=== PATIENT | male | born 1930 | race Caucasian/White ===

== ENCOUNTER 2019-06-11 13:28 | Observation (INO) | payer BC, MEDICAID ==
[~2019-06-11] VITALS: Ht 172.7 cm; Wt 70.9 kg
[2019-06-11 14:16] LABS: BASO # 0.1 x10^3/uL (0.0-0.2); BASO % 1 % (0-3); EOS # 0.1 x10^3/uL (0.0-0.7); EOS % 1 % (0-3); HEMATOCRIT 46.7 % (39.0-53.0); HEMOGLOBIN 15.4 g/dL (13.0-17.5); LYMPH # 2.3 x10^3/uL (1.0-4.8); LYMPH % 25 % (24-48); MEAN CORPUSCULAR HEMOGLOBIN 31 pg (25-35); MEAN CORPUSCULAR HGB CONC 33 g/dL (31-37); MEAN CORPUSCULAR VOLUME 93 fL (79-100); MONO # 0.8 x10^3/uL (0.0-1.1); MONO % 9 % (0-9); NEUT # 5.9 x10^3uL (1.8-7.7); NEUT % 64 % (31-73); PLATELET COUNT 217 x10^3/uL (140-400); RED CELL DISTRIBUTION WIDTH 15.7 % (11.5-14.5); WHITE BLOOD COUNT 9.3 x10^3/uL (4.0-11.0)
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
[2019-06-11 14:27] LABS: ALBUMIN 3.2 g/dL (3.4-5.0); TOTAL PROTEIN 7.3 g/dL (6.4-8.2)
[2019-06-11 14:28] LABS: ALBUMIN/GLOBULIN RATIO 0.8 (1.0-1.7); CALCIUM 9.2 mg/dL (8.5-10.1); CREATININE 2.3 mg/dL (0.7-1.3); GFR 26.9; MAGNESIUM 2.3 mg/dL (1.8-2.4); POTASSIUM 4.2 mmol/L (3.5-5.1); TOTAL BILIRUBIN 0.6 mg/dL (0.2-1.0)
--- NOTE | 2019-06-11 14:45 | EKG ---
[address] [address] Test Date: 2019-06-11 Test Time: 13:52:17 Pat Name: ZULEIKA SAINZ Department: Room: Gender: M [employer] Le[employer] Agent: DAVID : [id number] Requested By: LANNY MOCK Order Number: [id number] Reading MD: Dino Roland MD Measurements Intervals [place] Rate: 60 P: 0 ME: 198 QRS: -121 QRSD: 172 T: 89 QT: 468 QTc: 468 Interpretive Statements A-V PACED Electronically Signed On 06-18-2019 16:32:40 CDT by Dino Roland MD
[2019-06-11] MEDS ORDERED: IV NORMAL SALINE 1,000ML 1,000 ML IV ONE (15:00)
[2019-06-11 15:09] LABS: BILIRUBIN,URINE NEG (NEG); CLARITY,URINE TURBID; COLOR,URINE YELLOW; GLUCOSE,URINE NEG (NEG); NITRITE,URINE NEG (NEG); UROBILINOGEN,URINE 0.2 mg/dL (0.2 mg/dL)
[2019-06-11 15:10] LABS: BACTERIA,URINE MANY /HPF (0-FEW); SQUAMOUS EPITHELIAL CELL,UR OCC /LPF; WBC,URINE >40 /HPF (0-4)
[2019-06-11 15:11] LABS: HYALINE CASTS, URINE OCC /HPF
[2019-06-11] MEDS ORDERED: cefTRIAXone SODIUM 1 GM VIAL ONE (16:11)
[2019-06-11] MEDS ORDERED: IV NORMAL SALINE 50ML 50 ML ONE (16:11)
[2019-06-11 18:49] VITALS: BP 119/69
[2019-06-11] MEDS ORDERED: DIGO125T17 PO (19:57)
[2019-06-11] MEDS ORDERED: MAGN2400 PO (19:57)
[2019-06-11] MEDS ORDERED: GABA-586 PO (19:57)
[2019-06-11] MEDS ORDERED: MEMA10TA PO (19:57)
[2019-06-11] MEDS ORDERED: SENN1TAB62 PO (19:57)
[2019-06-11] MEDS ORDERED: ACET325T9 PO (19:57)
[2019-06-11] MEDS ORDERED: POTA10TA10 PO (19:57)
[2019-06-11] MEDS ORDERED: INSU100V13 SQ (19:57)
[2019-06-11] MEDS ORDERED: TRAZ-120 PO (19:57)
[2019-06-11] MEDS ORDERED: ATOR20TA58 PO (19:57)
[2019-06-11] MEDS ORDERED: TAMS0.4C97 PO (19:57)
[2019-06-11] MEDS ORDERED: NITR0.4T24 SL (19:57)
[2019-06-11] MEDS ORDERED: FURO-69 PO (19:57)
[2019-06-11] MEDS ORDERED: INSU100C SQ (19:57)
[2019-06-11] MEDS ORDERED: AMLO2.5T5 PO (19:57)
--- NOTE | 2019-06-11 20:51 | HP ---
ADMIT DATE: 06/11/2019 ATTENDING PHYSICIAN: Joseph Gaviria MD CHIEF COMPLAINT: [facility]. HISTORY OF PRESENT ILLNESS: The patient is an 88-year-old gentleman who comes from [facility] in [place]. He was scheduled to go to the [facility] Unit. He was screened and evaluated in the ED. He had a urinary tract infection. He is quite demented and obtunded, could not give us much history. He has chronic kidney failure with a creatinine of 2.3 mg percent. He is admitted to the medical service for further treatment and evaluation. He is obtunded by the time I saw him, he could not give any history. No family is here. PAST MEDICAL HISTORY: Significant for chronic kidney disease, stage 3. He has a pacemaker defibrillator. He has had a nephrectomy for supposed cancer. No further details are obtained. He has had essential hypertension and diabetes. He also has profound dementia. ALLERGIES: HE HAS ALLERGIES TO MEPERIDINE, METFORMIN AND NAPROSYN. CURRENT MEDICINES: Include Tylenol, amlodipine, Lipitor, digoxin, Lasix, Neurontin, insulin, magnesium hydroxide, Namenda, nitroglycerin, potassium, senna, Flomax and trazodone. SOCIAL HISTORY: He had been a smoker in the past. There is no history of alcohol use. FAMILY HISTORY: Unobtainable. REVIEW OF SYSTEMS: Unobtainable due to the patient's mental state. PHYSICAL EXAMINATION: GENERAL: When I saw him, this is a sleepy, pleasant, elderly gentleman who is very confused. INITIAL VITAL SIGNS: In the ED showed a blood pressure 140 systolic. His pulse is 65 and regular. He was afebrile. HEENT: Head is without trauma. Pupils are reactive. Sclerae nonicteric. Extraocular muscles intact. Oropharynx is clear. NECK: Supple, no bruits identified. LUNGS: Otherwise clear. CARDIOVASCULAR: Showed regular heart tones. No gallops, no murmurs. Peripheral pulses are palpable and full. ABDOMEN: Soft, protuberant. No organomegaly. Bowel sounds are hypoactive. EXTREMITIES: Showed no cyanosis or edema. NEUROLOGIC: Focally intact. No focal deficit. He is not aware of person, place or time. PERTINENT LABORATORY DATA: His creatinine is 2.3 mg/dL, mainly on the basis he only has one kidney. He has had a previous nephrectomy. The potassium is 4.2 mEq. Liver functions unremarkable. CBC showed a hemoglobin 15.4 g/dL with white count of 9300. Urinalysis shows protein, leukocyte esterase. Cultures are pending. ASSESSMENT: 1. This is an 88-year-old gentleman who has dementia with aggressive behavior. 2. Asymptomatic urinary tract infection. 3. History of atrial fibrillation. 4. Profound dementia with depression. 5. Hypertension. 6. Diabetes. PLAN: 1. Admit overnight for observation to the medical floor. 2. We shall obtain a psychiatric consult if he qualifies for the Senior Behavioral Unit. 3. Continue some home meds. 4. Empiric antibiotics for UTI, pending cultures. JOSEPH GAVIRIA MD DR: VEL/radha JOB#: [id number] / [id number]
[2019-06-12 02:20] VITALS: BP 113/95
[2019-06-12 05:33] VITALS: BP 168/79
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
[2019-06-12 10:48] VITALS: BP 165/75
[2019-06-12 11:30] VITALS: BP 165/75
[2019-06-12] MEDS ORDERED: DIGOXIN 125 MCG TABLET PO SCH (11:30)
[2019-06-12] MEDS ORDERED: MEMANTINE 10 MG TABLET. PO SCH (11:30)
[2019-06-12] MEDS ORDERED: INSULIN LISPRO 300 UNITS/3 ML VIAL. SQ SCH (12:00)
[2019-06-12] MEDS ORDERED: GABAPENTIN 300 MG CAPSULE. PO SCH (14:00)
[2019-06-19] MEDS ORDERED: METH28OI2 TP (05:22)
== END 2019-06-12 13:33 ==
LOC: ER 13:30 → INTOOBSV 17:55 → 1 SOUTH 17:55
PROVIDERS: ADMIT Hospitalist; ATTEND Hospitalist
DX: F03.91 Unspecified dementia, unspecified severity, with behavioral disturbance (principal); N39.0 Urinary tract infection, site not specified; F32.9 Major depressive disorder, single episode, unspecified; N18.3 Chronic kidney disease, stage 3 (moderate); I48.2 Chronic atrial fibrillation; E11.22 Type 2 diabetes mellitus with diabetic chronic kidney disease; I12.9 Hypertensive chronic kidney disease with stage 1 through stage 4 chronic kidney disease, or unspecified chronic kidney disease; Z95.810 Presence of automatic (implantable) cardiac defibrillator; Z87.891 Personal history of nicotine dependence; Z79.4 Long term (current) use of insulin; Z02.9 Encounter for administrative examinations, unspecified; Z90.5 Acquired absence of kidney
CPT/HCPCS: 96365; 99284; G0378; J0696; J1815; 36415; 80053; 81001; 82947; 83540; 83550; 83735; 85025; 87086; 87641; 93005; G0379; J7030

== ENCOUNTER 2019-06-12 13:46 | Inpatient (IN) | payer BC, MEDICAID ==
[~2019-06-12] VITALS: Ht 170.2 cm; Wt 71.8 kg
[~2019-06-12 13:46] MED LIST: ACET325T9 PO; AMLO2.5T5 PO; ATOR20TA58 PO; DIGO125T17 PO; FURO-69 PO; GABA-586 PO; INSU100C SQ; INSU100V13 SQ; MAGN2400 PO; MEMA10TA PO; NITR0.4T SL; POTA10TA10 PO; SENN1TAB62 PO; TAMS0.4C97 PO; TRAZ-120 PO
[2019-06-12 14:15] VITALS: BP 179/85
[2019-06-12] MEDS ORDERED: METHYL SALICYLATE/MENTHOL TOPICAL OINTMENT 29GM TUBE. TP PRN (16:00)
[2019-06-12] MEDS ORDERED: MAG HYDROX/AL HYDROX/SIMETH 30 ML ORAL.SUSP PO PRN (16:00)
[2019-06-12] MEDS ORDERED: MAGNESIUM HYDROXIDE 2,400 MG/30 ML ORAL.SUSP. PO PRN (16:00)
[2019-06-12 16:45] VITALS: BP 123/85
[2019-06-12] MEDS: INSULIN LISPRO 300 UNITS/3 ML VIAL. SQ SCH (17:00)
[2019-06-12 17:28] LABS: DIG 1.1 ng/dL (0.9-2.0)
[2019-06-12] MEDS: SENNOSIDES/DOCUSATE 8.6/50MG TABLET. PO SCH (20:10)
[2019-06-12] MEDS: GABAPENTIN 300 MG CAPSULE. PO SCH (20:10)
[2019-06-12] MEDS: ATORVASTATIN CALCIUM 20 MG TABLET PO SCH (20:10)
[2019-06-12] MEDS: TAMSULOSIN 0.4 MG CAP.ER.24H. PO SCH (20:10)
[2019-06-12] MEDS: MEMANTINE 10 MG TABLET. PO SCH (20:11)
[2019-06-12] MEDS: ACETAMINOPHEN 325 MG TABLET PO PRN (20:28)
[2019-06-12] MEDS: INSULIN GLARGINE SYRINGE. SQ SCH (20:31)
--- NOTE | 2019-06-12 21:56 | PDOC ---
Exam Note: Imer Note: Please also refer to the separate dictated note~for this date of service dictated separately. Discussed the patient with Nursing staff reviewed the chart.~Reviewed interim history and current functioning. Reviewed vital signs,~Labs/ Radiology~and current medications noted below. Continue current treatment with the changes noted in the dictated addendum note Assessment: Vital Signs/I&O: Vital Signs Date Time Temp Pulse Resp B/P (MAP) Pulse Ox O2 Delivery O2 Flow Rate FiO2 06/12/19 16:45 97.2 78 18 123/85 (98) 96 Room Air Labs: Laboratory Tests Test 06/12/19 17:00 06/12/19 17:18 06/12/19 19:04 Magnesium Level 2.1 mg/dL (1.8-2.4) Digoxin Level 1.1 ng/dL (0.9-2.0) Digoxin Last Dose Date 06/11/19 Digoxin Last Dose Time 0900 Glucose (Fingerstick) 176 mg/dL (70-99) H 144 mg/dL (70-99) H Current Medications: Meds: Current Medications Medications (Trade) Dose Ordered Sig/Sonia Route PRN Reason Start Time Stop Time Status Last Admin Dose Admin Olanzapine (ZyPREXA ZYDIS) 2.5 mg PRN Q2HR PRN PO PSYCHOSIS 06/12/19 14:30 06/12/19 16:03 Acetaminophen (Tylenol) 650 mg PRN Q6HRS PRN PO PAIN / TEMP 06/12/19 15:30 06/12/19 20:31 Gabapentin (Neurontin) 300 mg TID PO 06/12/19 21:00 06/12/19 20:11 Memantine (Namenda) 10 mg BID PO 06/12/19 21:00 06/12/19 20:11 Senna/Docusate Sodium (Senna Plus) 1 tab BID PO 06/12/19 21:00 06/12/19 20:11 Tamsulosin HCl (Flomax) 0.4 mg QHS PO 06/12/19 21:00 06/12/19 20:11 Insulin Glargine (Lantus Syringe) 13 unit QHS SQ 06/12/19 21:00 06/12/19 20:31 Insulin Human Lispro (HumaLOG) 8 units TIDWMEALS SQ 8/30/19 17:00 06/12/19 18:32 Atorvastatin Calcium (Lipitor) 20 mg QHS PO 06/12/19 21:00 06/12/19 20:11 I have reviewed the current psychotropics carefully including drug interactions. Risk benefit ratio favors no change other than as noted in my dictated progress note. Diagnosis: Problems: (1) Anxiety disorder (2) Dementia with psychosis (3) Dementia, vascular, with delusions (4) Dementia, vascular, with depression (5) Dementia in Alzheimer's disease with delusions (6) Dementia in Alzheimer's disease with depression (7) Impulse control disorder QUINN DENNISON MD Jun 12, 2019 21:56
[2019-06-13 00:06] LABS: HEMOGLOBIN A1C 8.1 % (4.8-5.6); THYROXINE 5.1 ug/dL (4.5-12.0)
[2019-06-13 05:52] VITALS: BP 168/87
[2019-06-13] MEDS: INSULIN LISPRO 300 UNITS/3 ML VIAL. SQ SCH ×3 (08:25→17:30)
[2019-06-13] MEDS: POTASSIUM CHLORIDE 10 MEQ TABLET.ER. PO SCH (08:26)
[2019-06-13] MEDS: DIGOXIN 125 MCG TABLET PO SCH (08:26)
[2019-06-13] MEDS: SENNOSIDES/DOCUSATE 8.6/50MG TABLET. PO SCH ×2 (08:27→20:06)
[2019-06-13] MEDS: FUROSEMIDE 20 MG TABLET PO SCH (08:27)
[2019-06-13] MEDS: MEMANTINE 10 MG TABLET. PO SCH ×2 (08:27→20:06)
[2019-06-13] MEDS: GABAPENTIN 300 MG CAPSULE. PO SCH ×3 (08:28→20:06)
[2019-06-13 12:05] LABS: THYROID STIM HORMONE (TSH) 2.508 uIU/mL (0.358-3.740)
[2019-06-13 15:52] VITALS: BP 123/69
[2019-06-13] MEDS: ATORVASTATIN CALCIUM 20 MG TABLET PO SCH (20:06)
[2019-06-13] MEDS: TAMSULOSIN 0.4 MG CAP.ER.24H. PO SCH (20:06)
[2019-06-13] MEDS: ACETAMINOPHEN 325 MG TABLET PO PRN (20:08)
[2019-06-13] MEDS: INSULIN GLARGINE SYRINGE. SQ SCH (20:08)
--- NOTE | 2019-06-13 22:52 | PDOC ---
Exam Note: Imer Note: Please also refer to the separate dictated note~for this date of service dictated separately.~Patient seen individually. Discussed the patient with Nursing staff reviewed the chart.~Reviewed interim history and current functioning. Reviewed vital signs,~Labs/ Radiology~and current medications noted below. Continue current treatment with the changes noted in the dictated addendum note Assessment: Vital Signs/I&O: Vital Signs Date Time Temp Pulse Resp B/P (MAP) Pulse Ox O2 Delivery O2 Flow Rate FiO2 06/13/19 15:52 98.5 71 20 123/69 (87) 98 06/12/19 16:45 Room Air I & O 06/12/19 06/12/19 06/13/19 15:00 23:00 07:00 Intake Total 300 ml Balance 300 ml Labs: Laboratory Tests Test 06/13/19 11:50 06/13/19 16:49 06/13/19 19:27 Glucose (Fingerstick) 125 mg/dL (70-99) H 115 mg/dL (70-99) H 164 mg/dL (70-99) H Current Medications: Meds: Current Medications Medications (Trade) Dose Ordered Sig/Sonia Route PRN Reason Start Time Stop Time Status Last Admin Dose Admin Digoxin (Lanoxin) 125 mcg DAILY PO 06/13/19 09:00 06/13/19 08:28 Furosemide (Lasix) 10 mg DAILY PO 06/13/19 09:00 06/13/19 08:28 Potassium Chloride (Klor-Con) 10 meq DAILY PO 06/13/19 09:00 06/13/19 08:28 I have reviewed the current psychotropics carefully including drug interactions. Risk benefit ratio favors no change other than as noted in my dictated progress note. Diagnosis: Problems: (1) Anxiety disorder (2) Dementia with psychosis (3) Dementia, vascular, with delusions (4) Dementia, vascular, with depression (5) Dementia in Alzheimer's disease with delusions (6) Dementia in Alzheimer's disease with depression (7) Impulse control disorder QUINN DENNISON MD Jun 13, 2019 22:52
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
[2019-06-14 06:21] VITALS: BP 134/56
[2019-06-14] MEDS: POTASSIUM CHLORIDE 10 MEQ TABLET.ER. PO SCH (08:33)
[2019-06-14] MEDS: FUROSEMIDE 20 MG TABLET PO SCH (08:34)
[2019-06-14] MEDS: DIGOXIN 125 MCG TABLET PO SCH (08:34)
[2019-06-14] MEDS: GABAPENTIN 300 MG CAPSULE. PO SCH ×3 (08:35→19:59)
[2019-06-14] MEDS: MEMANTINE 10 MG TABLET. PO SCH ×2 (08:35→19:58)
[2019-06-14] MEDS: SENNOSIDES/DOCUSATE 8.6/50MG TABLET. PO SCH ×2 (08:35→19:58)
[2019-06-14] MEDS: INSULIN LISPRO 300 UNITS/3 ML VIAL. SQ SCH ×4 (08:40→17:49)
[2019-06-14] MEDS ORDERED: SERTRALINE 25 MG TABLET. PO SCH (09:00)
--- NOTE | 2019-06-14 14:43 | PN ---
DATE: 06/13/2019 This note covers elements not covered in my initial note of 06/13. SUBJECTIVE: I met with the patient evening of 06/13. The patient slept 6 hours previous night. Per nursing report, he takes his medications whole. He is calm, disorganized, confused, tries to stand up unassisted, is a significant fall risk. We are going to go ahead and repeat UA since one has not in the chart, but previous documentation showed culture was pending. REVIEW OF SYSTEMS: Ambulation impaired, in wheelchair, complains of back pain. No CV, , pulmonary, eye, ENT system symptoms on review. Reliability poor. MENTAL STATUS EXAM: Oriented to himself. Insight, judgment, recent and remote memory, attention, concentration, fund of knowledge poor, consistent with his diagnosis mentioned in my initial note. IMPRESSION: Major neurocognitive disorder, Alzheimer, vascular with delusion, depression, behavioral disturbance; anxiety disorder, unspecified; impulse control disorder, unspecified; probable urinary tract infection. PLAN: Continue Namenda along with Zyprexa p.r.n. Start Zoloft 25 mg a day. Check UA for UTI. Make further adjustments as clinically indicated. We will obtain past psychiatric records. QUINN DENNISON MD DR: SAMIR/radha JOB#: [id number] / [id number]
[2019-06-14 15:52] VITALS: BP 91/63
[2019-06-14] MEDS: ATORVASTATIN CALCIUM 20 MG TABLET PO SCH (19:58)
[2019-06-14] MEDS: TAMSULOSIN 0.4 MG CAP.ER.24H. PO SCH (19:58)
[2019-06-14] MEDS: INSULIN GLARGINE SYRINGE. SQ SCH (19:59)
--- NOTE | 2019-06-14 21:08 | PDOC ---
Exam Note: Imer Note: Please also refer to the separate dictated note~for this date of service dictated separately.~Patient seen individually. Discussed the patient with Nursing staff reviewed the chart.~Reviewed interim history and current functioning. Reviewed vital signs,~Labs/ Radiology~and current medications noted below. Continue current treatment with the changes noted in the dictated addendum note Assessment: Vital Signs/I&O: Vital Signs Date Time Temp Pulse Resp B/P (MAP) Pulse Ox O2 Delivery O2 Flow Rate FiO2 06/14/19 15:52 97.8 65 19 91/63 (72) 96 06/14/19 06:21 Room Air I & O 06/13/19 06/13/19 06/14/19 15:00 23:00 07:00 Intake Total 600 ml 240 ml 240 ml Balance 600 ml 240 ml 240 ml Labs: Laboratory Tests Test 06/14/19 07:24 06/14/19 11:47 06/14/19 17:09 06/14/19 19:17 Glucose (Fingerstick) 128 mg/dL (70-99) H 273 mg/dL (70-99) H 155 mg/dL (70-99) H 197 mg/dL (70-99) H Current Medications: Meds: Current Medications Medications (Trade) Dose Ordered Sig/Sonia Route PRN Reason Start Time Stop Time Status Last Admin Dose Admin Sertraline HCl (Zoloft) 25 mg DAILY PO 06/14/19 09:00 06/14/19 08:35 I have reviewed the current psychotropics carefully including drug interactions. Risk benefit ratio favors no change other than as noted in my dictated progress note. Diagnosis: Problems: (1) Impulse control disorder (2) Dementia in Alzheimer's disease with depression (3) Dementia in Alzheimer's disease with delusions (4) Dementia, vascular, with depression (5) Dementia, vascular, with delusions (6) Dementia with psychosis (7) Anxiety disorder QUINN DENNISON MD Jun 14, 2019 21:08
[2019-06-15 05:52] VITALS: BP 165/80
[2019-06-15] MEDS: POTASSIUM CHLORIDE 10 MEQ TABLET.ER. PO SCH (08:15)
[2019-06-15] MEDS: GABAPENTIN 300 MG CAPSULE. PO SCH ×3 (08:16→20:34)
[2019-06-15] MEDS: SENNOSIDES/DOCUSATE 8.6/50MG TABLET. PO SCH ×2 (08:16→20:34)
[2019-06-15] MEDS: MEMANTINE 10 MG TABLET. PO SCH ×2 (08:16→20:34)
[2019-06-15] MEDS: FUROSEMIDE 20 MG TABLET PO SCH (08:16)
[2019-06-15] MEDS: DIGOXIN 125 MCG TABLET PO SCH (08:16)
[2019-06-15] MEDS: buPROPion XL 150 MG TAB.ER.24H PO SCH (08:19)
[2019-06-15] MEDS: INSULIN LISPRO 300 UNITS/3 ML VIAL. SQ SCH ×2 (08:20→12:19)
[2019-06-15 16:36] VITALS: BP 127/71
--- NOTE | 2019-06-15 19:27 | PDOC ---
Exam Note: Imer Note: Please also refer to the separate dictated note~for this date of service dictated separately.~Patient seen individually. Discussed the patient with Nursing staff reviewed the chart.~Reviewed interim history and current functioning. Reviewed vital signs,~Labs/ Radiology~and current medications noted below. Continue current treatment with the changes noted in the dictated addendum note Assessment: Vital Signs/I&O: Vital Signs Date Time Temp Pulse Resp B/P (MAP) Pulse Ox O2 Delivery O2 Flow Rate FiO2 06/15/19 16:36 97.3 99 16 127/71 (89) 96 06/14/19 06:21 Room Air I & O 06/14/19 06/14/19 06/15/19 15:00 23:00 07:00 Intake Total 560 ml 240 ml 240 ml Balance 560 ml 240 ml 240 ml Labs: Laboratory Tests Test 06/15/19 07:40 06/15/19 11:56 06/15/19 17:16 Glucose (Fingerstick) 133 mg/dL (70-99) H 170 mg/dL (70-99) H 84 mg/dL (70-99) Current Medications: Meds: Current Medications Medications (Trade) Dose Ordered Sig/Sonia Route PRN Reason Start Time Stop Time Status Last Admin Dose Admin Bupropion HCl (Wellbutrin Xl) 150 mg DAILY PO 06/15/19 09:00 06/15/19 08:20 I have reviewed the current psychotropics carefully including drug interactions. Risk benefit ratio favors no change other than as noted in my dictated progress note. Diagnosis: Problems: (1) Impulse control disorder (2) Dementia in Alzheimer's disease with depression (3) Dementia in Alzheimer's disease with delusions (4) Dementia, vascular, with depression (5) Dementia, vascular, with delusions (6) Dementia with psychosis (7) Anxiety disorder QUINN DENNISON MD Jun 15, 2019 19:27
[2019-06-15] MEDS: TAMSULOSIN 0.4 MG CAP.ER.24H. PO SCH (20:34)
[2019-06-15] MEDS: ATORVASTATIN CALCIUM 20 MG TABLET PO SCH (20:34)
[2019-06-15] MEDS: INSULIN GLARGINE SYRINGE. SQ SCH (20:35)
[2019-06-16 05:57] VITALS: BP 131/61
[2019-06-16] MEDS: INSULIN LISPRO 300 UNITS/3 ML VIAL. SQ SCH ×3 (08:00→18:17)
[2019-06-16] MEDS: POTASSIUM CHLORIDE 10 MEQ TABLET.ER. PO SCH (08:05)
[2019-06-16] MEDS: buPROPion XL 150 MG TAB.ER.24H PO SCH (08:06)
[2019-06-16] MEDS: MEMANTINE 10 MG TABLET. PO SCH ×2 (08:06→20:28)
[2019-06-16] MEDS: SENNOSIDES/DOCUSATE 8.6/50MG TABLET. PO SCH ×2 (08:06→20:28)
[2019-06-16] MEDS: FUROSEMIDE 20 MG TABLET PO SCH (08:06)
[2019-06-16] MEDS: GABAPENTIN 300 MG CAPSULE. PO SCH ×3 (08:11→20:28)
[2019-06-16] MEDS: DIGOXIN 125 MCG TABLET PO SCH (08:11)
[2019-06-16] MEDS: ACETAMINOPHEN 325 MG TABLET PO PRN (12:36)
[2019-06-16 15:12] LABS: BASO # 0.1 x10^3/uL (0.0-0.2); BASO % 1 % (0-3); EOS # 0.1 x10^3/uL (0.0-0.7); EOS % 2 % (0-3); LYMPH # 2.1 x10^3/uL (1.0-4.8); LYMPH % 31 % (24-48); MEAN CORPUSCULAR HEMOGLOBIN 31 pg (25-35); MEAN CORPUSCULAR HGB CONC 33 g/dL (31-37); MEAN CORPUSCULAR VOLUME 93 fL (79-100); MONO # 0.6 x10^3/uL (0.0-1.1); MONO % 9 % (0-9); NEUT % 57 % (31-73); PLATELET COUNT 150 x10^3/uL (140-400); RED BLOOD COUNT 4.52 x10^6/uL (4.30-5.70); RED CELL DISTRIBUTION WIDTH 15.6 % (11.5-14.5); WHITE BLOOD COUNT 6.9 x10^3/uL (4.0-11.0)
[2019-06-16 15:22] LABS: ALBUMIN/GLOBULIN RATIO 0.8 (1.0-1.7); CALCIUM 8.9 mg/dL (8.5-10.1); CREATININE 2.4 mg/dL (0.7-1.3); GFR 25.6; POTASSIUM 4.5 mmol/L (3.5-5.1); TOTAL BILIRUBIN 0.4 mg/dL (0.2-1.0); TOTAL PROTEIN 6.7 g/dL (6.4-8.2)
[2019-06-16 16:31] VITALS: BP 127/66
--- NOTE | 2019-06-16 17:09 | PN ---
DATE: 06/14/2019 This late entry 06/14 covers elements not covered in my initial note. SUBJECTIVE: I met with the patient in evening of 06/14. The patient slept 7-3/4 hours previous night. He remains confused, has been somewhat sedated. UA is negative. BUN 36, creatinine 2.3. REVIEW OF SYSTEMS: Ambulation impaired, in wheelchair. No CV, , pulmonary, eye, ENT system symptoms on review. Reliability poor. MENTAL STATUS EXAMINATION: Oriented to himself. Insight, judgment, recent and remote memory, attention, concentration, fund of knowledge poor consistent with his diagnosis mentioned in my initial note. PLAN: The patient has been somewhat withdrawn, apathetic. We will do a pharmacy consult and given his renal failure, there is no contraindication. We will go ahead and change the Zoloft to Wellbutrin-XL 150 mg a day. Maintain Namenda at current dosage. May need to increase this gradually. MAN Marissa DENNISON MD DR: SAMIR/radha JOB#: [id number] / [id number]
--- NOTE | 2019-06-16 18:54 | PDOC ---
Exam Note: Imer Note: Please also refer to the separate dictated note~for this date of service dictated separately.~Patient seen individually. Discussed the patient with Nursing staff reviewed the chart.~Reviewed interim history and current functioning. Reviewed vital signs,~Labs/ Radiology~and current medications noted below. Continue current treatment with the changes noted in the dictated addendum note Assessment: Vital Signs/I&O: Vital Signs Date Time Temp Pulse Resp B/P (MAP) Pulse Ox O2 Delivery O2 Flow Rate FiO2 06/16/19 16:31 97.5 73 16 127/66 (86) 94 06/14/19 06:21 Room Air I & O 06/15/19 06/15/19 06/16/19 14:59 22:59 06:59 Intake Total 660 ml 480 ml 240 ml Balance 660 ml 480 ml 240 ml Labs: Laboratory Tests Test 06/15/19 19:49 06/16/19 07:27 06/16/19 11:47 06/16/19 15:04 Glucose (Fingerstick) 126 mg/dL (70-99) H 72 mg/dL (70-99) 106 mg/dL (70-99) H White Blood Count 6.9 x10^3/uL (4.0-11.0) Red Blood Count 4.52 x10^6/uL (4.30-5.70) Hemoglobin 14.0 g/dL (13.0-17.5) Hematocrit 42.0 % (39.0-53.0) Mean Corpuscular Volume 93 fL (79-100) Mean Corpuscular Hemoglobin 31 pg (25-35) Mean Corpuscular Hemoglobin Concent 33 g/dL (31-37) Red Cell Distribution Width 15.6 % (11.5-14.5) H Platelet Count 150 x10^3/uL (140-400) Neutrophils (%) (Auto) 57 % (31-73) Lymphocytes (%) (Auto) 31 % (24-48) Monocytes (%) (Auto) 9 % (0-9) Eosinophils (%) (Auto) 2 % (0-3) Basophils (%) (Auto) 1 % (0-3) Neutrophils # (Auto) 4.0 x10^3uL (1.8-7.7) Lymphocytes # (Auto) 2.1 x10^3/uL (1.0-4.8) Monocytes # (Auto) 0.6 x10^3/uL (0.0-1.1) Eosinophils # (Auto) 0.1 x10^3/uL (0.0-0.7) Basophils # (Auto) 0.1 x10^3/uL (0.0-0.2) Sodium Level 141 mmol/L (136-145) Potassium Level 4.5 mmol/L (3.5-5.1) Chloride Level 106 mmol/L (98-107) Carbon Dioxide Level 27 mmol/L (21-32) Anion Gap 8 (6-14) Blood Urea Nitrogen 45 mg/dL (8-26) H Creatinine 2.4 mg/dL (0.7-1.3) H Estimated GFR (Cockcroft-Gault) 25.6 BUN/Creatinine Ratio 19 (6-20) Glucose Level 223 mg/dL (70-99) H Calcium Level 8.9 mg/dL (8.5-10.1) Total Bilirubin 0.4 mg/dL (0.2-1.0) Aspartate Amino Transferase (AST) 35 U/L (15-37) Alanine Aminotransferase (ALT) 33 U/L (16-63) Alkaline Phosphatase 118 U/L (46-116) H Total Protein 6.7 g/dL (6.4-8.2) Albumin 3.0 g/dL (3.4-5.0) L Albumin/Globulin Ratio 0.8 (1.0-1.7) L Test 06/16/19 17:08 Glucose (Fingerstick) 173 mg/dL (70-99) H Current Medications: I have reviewed the current psychotropics carefully including drug interactions. Risk benefit ratio favors no change other than as noted in my dictated progress note. 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
[2019-06-16] MEDS: ATORVASTATIN CALCIUM 20 MG TABLET PO SCH (20:28)
[2019-06-16] MEDS: TAMSULOSIN 0.4 MG CAP.ER.24H. PO SCH (20:28)
[2019-06-16] MEDS: INSULIN GLARGINE SYRINGE. SQ SCH (20:29)
--- NOTE | 2019-06-17 01:38 | PN ---
DATE: 06/15/2019 PSYCHIATRIC PROGRESS NOTE This late entry 06/15/2019 covers the elements not covered in my initial note, 06/15/2019. SUBJECTIVE: I met with the patient in the evening of 06/15/2019. The patient slept 9-3/4 hours previous night. He remains confused, withdrawn. Pharmacy consult found no contraindication to using Wellbutrin and left me a note that if the patient is unable to tolerate the 150 mg daily, we could lower the dosage. REVIEW OF SYSTEMS: Ambulation impaired, in wheelchair. No CV, , pulmonary, eye, ENT system symptoms on review. Reliability poor. MENTAL STATUS EXAM: Oriented to himself. Insight, judgment, recent and remote memory, attention, concentration, fund of knowledge poor, consistent with his diagnosis. He has been less drowsy during the day on 06/15/2019. LABORATORY DATA: Reviewed. IMPRESSION: Unchanged from initial note. PLAN: Continue Wellbutrin-XL 150 mg a day, Namenda is 10 mg daily. We will increase it gradually. QUINN DENNISON MD DR: SAMIR/radha JOB#: [id number] / [id number]
[2019-06-17 05:54] VITALS: BP 127/58
[2019-06-17 06:03] VITALS: BP 130/73
[2019-06-17] MEDS: DIGOXIN 125 MCG TABLET PO SCH (08:16)
[2019-06-17] MEDS: POTASSIUM CHLORIDE 10 MEQ TABLET.ER. PO SCH (08:16)
[2019-06-17] MEDS: GABAPENTIN 300 MG CAPSULE. PO SCH ×3 (08:17→20:12)
[2019-06-17] MEDS: buPROPion XL 150 MG TAB.ER.24H PO SCH (08:17)
[2019-06-17] MEDS: SENNOSIDES/DOCUSATE 8.6/50MG TABLET. PO SCH ×2 (08:17→20:12)
[2019-06-17] MEDS: FUROSEMIDE 20 MG TABLET PO SCH (08:17)
[2019-06-17] MEDS: MEMANTINE 10 MG TABLET. PO SCH ×2 (08:17→20:12)
[2019-06-17] MEDS: INSULIN LISPRO 300 UNITS/3 ML VIAL. SQ SCH ×3 (08:51→17:33)
--- NOTE | 2019-06-17 09:23 | HP ---
ADMIT DATE: 06/12/2019 ATTENDING PHYSICIAN: Joseph Gaviria MD CHIEF COMPLAINT: Aggressive behavior at the assisted. HISTORY OF PRESENT ILLNESS: The patient is an 88-year-old gentleman who comes from [facility] in [place]. He was scheduled to go to the [facility]. He was screened and evaluated in the ED. He had a urinary tract infection. He is quite demented and obtunded, could not give us much history. He has chronic kidney failure with a creatinine of 2.3 mg percent. He is admitted to the medical service for further treatment and evaluation. He is obtunded by the time I saw him, he could not give any history. No family is here. PAST MEDICAL HISTORY: Significant for chronic kidney disease, stage 3. He has a pacemaker defibrillator. He has had a nephrectomy for supposed cancer. No further details are obtained. He has had essential hypertension and diabetes. He also has profound dementia. ALLERGIES: HE HAS ALLERGIES TO MEPERIDINE, METFORMIN AND NAPROSYN. CURRENT MEDICINES: Include Tylenol, amlodipine, Lipitor, digoxin, Lasix, Neurontin, insulin, magnesium hydroxide, Namenda, nitroglycerin, potassium, senna, Flomax and trazodone. SOCIAL HISTORY: He had been a smoker in the past. There is no history of alcohol use. FAMILY HISTORY: Unobtainable. REVIEW OF SYSTEMS: Unobtainable due to the patient's mental state. PHYSICAL EXAMINATION: GENERAL: When I saw him, this is a sleepy, pleasant, elderly gentleman who is very confused. INITIAL VITAL SIGNS: In the ED showed a blood pressure 140 systolic. His pulse is 65 and regular. He was afebrile. HEENT: Head is without trauma. Pupils are reactive. Sclerae nonicteric. Extraocular muscles intact. Oropharynx is clear. NECK: Supple, no bruits identified. LUNGS: Otherwise clear. CARDIOVASCULAR: Showed regular heart tones. No gallops, no murmurs. Peripheral pulses are palpable and full. ABDOMEN: Soft, protuberant. No organomegaly. Bowel sounds are hypoactive. EXTREMITIES: Showed no cyanosis or edema. NEUROLOGIC: Focally intact. No focal deficit. He is not aware of person, place or time. PERTINENT LABORATORY DATA: His creatinine is 2.3 mg/dL, mainly on the basis he only has one kidney. He has had a previous nephrectomy. The potassium is 4.2 mEq. Liver functions unremarkable. CBC showed a hemoglobin 15.4 g/dL with white count of 9300. Urinalysis shows protein, leukocyte esterase. Cultures are pending. ASSESSMENT: 1. This is an 88-year-old gentleman who has dementia with aggressive behavior. 2. Asymptomatic urinary tract infection. 3. History of atrial fibrillation. 4. Profound dementia with depression. 5. Hypertension. 6. Diabetes. PLAN: 1. Admit overnight for observation to the medical floor. 2. We shall obtain a psychiatric consult if he qualifies for the [facility]. 3. Continue some home meds. 4. Empiric antibiotics for UTI, pending cultures. JOSEPH GAVIRIA MD DR: VEL/nts JOB#: [id number] / [id number]
[2019-06-17 12:00] VITALS: BP 98/52
[2019-06-17 16:35] VITALS: BP 134/74
[2019-06-17] MEDS: ATORVASTATIN CALCIUM 20 MG TABLET PO SCH (20:12)
[2019-06-17] MEDS: TAMSULOSIN 0.4 MG CAP.ER.24H. PO SCH (20:12)
[2019-06-17] MEDS: INSULIN GLARGINE SYRINGE. SQ SCH (21:18)
--- NOTE | 2019-06-17 21:59 | PDOC ---
Exam Note: Imer Note: Please also refer to the separate dictated note~for this date of service dictated separately.~Patient seen individually. Discussed the patient with Nursing staff reviewed the chart.~Reviewed interim history and current functioning. Reviewed vital signs,~Labs/ Radiology~and current medications noted below. Continue current treatment with the changes noted in the dictated addendum note Assessment: Vital Signs/I&O: Vital Signs Date Time Temp Pulse Resp B/P (MAP) Pulse Ox O2 Delivery O2 Flow Rate FiO2 06/17/19 16:35 98.0 83 16 134/74 (94) 95 06/14/19 06:21 Room Air I & O 06/16/19 06/16/19 06/17/19 15:00 23:00 07:00 Intake Total 480 ml 300 ml 120 ml Balance 480 ml 300 ml 120 ml Labs: Laboratory Tests Test 06/17/19 08:30 06/17/19 11:44 06/17/19 17:11 06/17/19 19:32 Glucose (Fingerstick) 110 mg/dL (70-99) H 121 mg/dL (70-99) H 107 mg/dL (70-99) H 139 mg/dL (70-99) H Current Medications: I have reviewed the current psychotropics carefully including drug interactions. Risk benefit ratio favors no change other than as noted in my dictated progress note. Diagnosis: Problems: (1) Anxiety disorder (2) Dementia with psychosis (3) Dementia, vascular, with delusions (4) Dementia, vascular, with depression (5) Dementia in Alzheimer's disease with delusions (6) Dementia in Alzheimer's disease with depression (7) Impulse control disorder QUINN DENNISON MD Jun 17, 2019 21:59
--- NOTE | 2019-06-18 05:01 | PN ---
DATE: 06/16/2019 PSYCHIATRIC PROGRESS NOTE This late entry of 06/16/2019 covers elements not covered in my initial note. SUBJECTIVE: I met with the patient in evening of 06/16/2019. The patient slept 7-3/4 hours previous night. He has been less tired, still confused. REVIEW OF SYSTEMS: Ambulation impaired, in wheelchair. No CV, , pulmonary, eye, ENT system symptoms on review. Reliability poor. MENTAL STATUS EXAM: Oriented to himself. Insight, judgment, recent and remote memory, attention, concentration, fund of knowledge poor, consistent with his diagnosis mentioned in my initial note. PLAN: No change from initial note, but increase the Namenda to 10 mg twice a day. Continue Wellbutrin-XL 150 mg a day, Zyprexa p.r.n. Rest of the psychotropics unchanged. MAN Marissa DENNISON MD DR: SAMIR/radha JOB#: [id number] / [id number]
[2019-06-18 06:43] VITALS: BP 173/77
[2019-06-18] MEDS: INSULIN LISPRO 300 UNITS/3 ML VIAL. SQ SCH ×3 (08:11→17:00)
[2019-06-18] MEDS: buPROPion XL 150 MG TAB.ER.24H PO SCH (08:13)
[2019-06-18] MEDS: GABAPENTIN 300 MG CAPSULE. PO SCH ×3 (08:14→20:38)
[2019-06-18] MEDS: SENNOSIDES/DOCUSATE 8.6/50MG TABLET. PO SCH ×2 (08:14→20:36)
[2019-06-18] MEDS: MEMANTINE 10 MG TABLET. PO SCH ×2 (08:14→20:36)
[2019-06-18] MEDS: DIGOXIN 125 MCG TABLET PO SCH (08:14)
[2019-06-18 16:04] VITALS: BP 132/78
[2019-06-18] MEDS: TAMSULOSIN 0.4 MG CAP.ER.24H. PO SCH (20:36)
[2019-06-18] MEDS: ATORVASTATIN CALCIUM 20 MG TABLET PO SCH (20:36)
[2019-06-18] MEDS: QUEtiapine 25 MG TABLET. PO SCH (20:38)
[2019-06-18] MEDS: INSULIN GLARGINE SYRINGE. SQ SCH (21:07)
--- NOTE | 2019-06-18 21:15 | PDOC ---
Exam Note: Imer Note: Please also refer to the separate dictated note~for this date of service dictated separately.~Patient seen individually. Discussed the patient with Nursing staff reviewed the chart.~Reviewed interim history and current functioning. Reviewed vital signs,~Labs/ Radiology~and current medications noted below. Continue current treatment with the changes noted in the dictated addendum note Assessment: Vital Signs/I&O: Vital Signs Date Time Temp Pulse Resp B/P (MAP) Pulse Ox O2 Delivery O2 Flow Rate FiO2 06/18/19 16:04 97.2 70 16 132/78 (96) 96 06/14/19 06:21 Room Air I & O 06/17/19 06/17/19 06/18/19 14:59 22:59 06:59 Intake Total 720 ml 240 ml 240 ml Balance 720 ml 240 ml 240 ml Labs: Laboratory Tests Test 06/18/19 07:56 06/18/19 11:57 06/18/19 16:39 06/18/19 19:18 Glucose (Fingerstick) 77 mg/dL (70-99) 198 mg/dL (70-99) H 93 mg/dL (70-99) 164 mg/dL (70-99) H Current Medications: Meds: Current Medications Medications (Trade) Dose Ordered Sig/Sonia Route PRN Reason Start Time Stop Time Status Last Admin Dose Admin Quetiapine Fumarate (SEROquel) 25 mg QHS PO 06/18/19 21:00 06/18/19 20:38 I have reviewed the current psychotropics carefully including drug interactions. Risk benefit ratio favors no change other than as noted in my dictated progress note. 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
[2019-06-19] MEDS ORDERED: MAG355OR11 PO (05:15)
[2019-06-19] MEDS ORDERED: MAGN2400 PO (05:21)
[2019-06-19] MEDS ORDERED: METH29OI TP (05:22)
[2019-06-19] MEDS ORDERED: OLAN2.5T3 PO (05:25)
[2019-06-19] MEDS ORDERED: BUPR-192 PO (05:28)
[2019-06-19 06:38] VITALS: BP 177/81
[2019-06-19] MEDS: INSULIN LISPRO 300 UNITS/3 ML VIAL. SQ SCH ×3 (08:00→17:00)
[2019-06-19] MEDS: MEMANTINE 10 MG TABLET. PO SCH ×2 (08:22→21:02)
[2019-06-19] MEDS: SENNOSIDES/DOCUSATE 8.6/50MG TABLET. PO SCH ×2 (08:22→21:02)
[2019-06-19] MEDS: DIGOXIN 125 MCG TABLET PO SCH (08:22)
[2019-06-19] MEDS: buPROPion XL 150 MG TAB.ER.24H PO SCH (08:22)
[2019-06-19] MEDS: GABAPENTIN 300 MG CAPSULE. PO SCH ×3 (08:29→21:02)
[2019-06-19 15:58] VITALS: BP 115/85
[2019-06-19] MEDS: TAMSULOSIN 0.4 MG CAP.ER.24H. PO SCH (21:02)
[2019-06-19] MEDS: ATORVASTATIN CALCIUM 20 MG TABLET PO SCH (21:02)
[2019-06-19] MEDS: QUEtiapine 25 MG TABLET. PO SCH (21:02)
[2019-06-19] MEDS: INSULIN GLARGINE SYRINGE. SQ SCH (21:04)
--- NOTE | 2019-06-19 22:08 | PDOC ---
Exam Note: Imer Note: Please also refer to the separate dictated note~for this date of service dictated separately.~Patient seen individually. Discussed the patient with Nursing staff reviewed the chart.~Reviewed interim history and current functioning. Reviewed vital signs,~Labs/ Radiology~and current medications noted below. Continue current treatment with the changes noted in the dictated addendum note Assessment: Vital Signs/I&O: Vital Signs Date Time Temp Pulse Resp B/P (MAP) Pulse Ox O2 Delivery O2 Flow Rate FiO2 06/19/19 15:58 97.4 86 18 115/85 (95) 97 06/19/19 06:38 Room Air I & O 06/18/19 06/18/19 06/19/19 14:59 22:59 06:59 Intake Total 720 ml 240 ml 120 ml Balance 720 ml 240 ml 120 ml Labs: Laboratory Tests Test 06/19/19 07:15 06/19/19 11:16 06/19/19 16:17 06/19/19 19:04 Glucose (Fingerstick) 130 mg/dL (70-99) H 226 mg/dL (70-99) H 114 mg/dL (70-99) H 127 mg/dL (70-99) H Current Medications: I have reviewed the current psychotropics carefully including drug interactions. Risk benefit ratio favors no change other than as noted in my dictated progress note. Diagnosis: Problems: (1) Anxiety disorder (2) Dementia with psychosis (3) Dementia, vascular, with delusions (4) Dementia, vascular, with depression (5) Dementia in Alzheimer's disease with delusions (6) Dementia in Alzheimer's disease with depression (7) Impulse control disorder QUINN DENNISON MD Jun 19, 2019 22:08
--- NOTE | 2019-06-20 03:20 | PN ---
DATE: 06/18/2019 PSYCHIATRIC PROGRESS NOTE This late entry of 06/17 covers elements not covered in my initial note of 06/17. SUBJECTIVE: I met with the patient in the evening of 06/17 and staff. The patient is at a treatment team meeting with the entire team on the morning of 06/17 and the patient's , Virginia, attended the conference. She had many questions about the patient's diagnosis, treatment, medications, specifically with respect to his nephrectomy and any side effects potentially from his medications. We discussed this at great length. He is sleeping average 8 hours. No pain. Appetite is 50%. REVIEW OF SYSTEMS: Ambulation impaired, in wheelchair. No CV, , pulmonary, eye, ENT system symptoms on review. Reliability poor. MENTAL STATUS EXAMINATION: Oriented to himself. Insight, judgment, recent and remote memory, attention, concentration, fund of knowledge poor, consistent with his diagnosis mentioned in my initial note. PLAN: No change from initial note. We will start Seroquel 25 mg p.o. at bedtime for some of his restlessness and if he is over sedated, we may need to reduce this. Continue Wellbutrin-XL 150 mg a day, Namenda 10 mg b.i.d., and Zyprexa p.r.n. QUINN DENNISON MD DR: SAMIR/radha JOB#: [id number] / [id number]
[2019-06-20 05:53] VITALS: BP 166/88
[2019-06-20 07:23] LABS: ALBUMIN 2.9 g/dL (3.4-5.0); ALBUMIN/GLOBULIN RATIO 0.8 (1.0-1.7); BASO # 0.1 x10^3/uL (0.0-0.2); BASO % 1 % (0-3); CREATININE 1.9 mg/dL (0.7-1.3); EOS # 0.2 x10^3/uL (0.0-0.7); EOS % 3 % (0-3); GFR 33.5; HEMATOCRIT 42.1 % (39.0-53.0); HEMOGLOBIN 13.8 g/dL (13.0-17.5); LYMPH # 2.6 x10^3/uL (1.0-4.8); LYMPH % 40 % (24-48); MEAN CORPUSCULAR HEMOGLOBIN 32 pg (25-35); MEAN CORPUSCULAR HGB CONC 33 g/dL (31-37); MEAN CORPUSCULAR VOLUME 96 fL (79-100); MONO # 0.7 x10^3/uL (0.0-1.1); MONO % 12 % (0-9); NEUT # 2.8 x10^3uL (1.8-7.7); NEUT % 44 % (31-73); PLATELET COUNT 125 x10^3/uL (140-400); POTASSIUM 4.1 mmol/L (3.5-5.1); RED BLOOD COUNT 4.38 x10^6/uL (4.30-5.70); RED CELL DISTRIBUTION WIDTH 16.2 % (11.5-14.5); TOTAL BILIRUBIN 0.6 mg/dL (0.2-1.0); TOTAL PROTEIN 6.4 g/dL (6.4-8.2); WHITE BLOOD COUNT 6.4 x10^3/uL (4.0-11.0)
[2019-06-20] MEDS: DIGOXIN 125 MCG TABLET PO SCH (07:56)
[2019-06-20] MEDS: MEMANTINE 10 MG TABLET. PO SCH (07:56)
[2019-06-20] MEDS: INSULIN LISPRO 300 UNITS/3 ML VIAL. SQ SCH ×3 (07:56→17:00)
[2019-06-20] MEDS: buPROPion XL 150 MG TAB.ER.24H PO SCH (07:56)
[2019-06-20] MEDS: SENNOSIDES/DOCUSATE 8.6/50MG TABLET. PO SCH (07:56)
[2019-06-20] MEDS: GABAPENTIN 300 MG CAPSULE. PO SCH ×2 (07:57→14:00)
--- NOTE | 2019-06-20 09:33 | PN ---
DATE: 06/17/2019 PSYCHIATRIC PROGRESS NOTE This late entry 06/17/2019 covers elements not covered in my initial note. SUBJECTIVE: I met with the patient evening of 06/17/2019. The patient slept 6-1/2 hours previous night. His BUN is elevated. He just has one kidney. I will defer to Dr. Waller for medical management. He is compliant with his medications. He sat himself on the floor, did not have a fall, does have a small skin tear. REVIEW OF SYSTEMS: Ambulation impaired, in wheelchair. No CV, , pulmonary, eye, ENT system symptoms on review. Reliability poor. MENTAL STATUS EXAM: Oriented to himself. Insight, judgment, recent and remote memory, attention, concentration, fund of knowledge poor, consistent with his diagnosis mentioned in my initial note. PLAN: No change from initial note for now. We started him on Wellbutrin-XL after a pharmacy consult found no contraindication for Wellbutrin given his nephrectomy. JA Felton did talk to the pharmacist to clarify this and we will share this with the at treatment team meeting on 06/18/2019. IMPRESSION: Unchanged from initial note. PLAN: No change from initial note. QUINN DENNISON MD DR: SAMIR/radha JOB#: [id number] / [id number]
[2019-06-20 16:06] VITALS: BP 138/83
--- NOTE | 2019-06-20 17:22 | RAD ---
Exam: CT head INDICATION: Left-sided neglect TECHNIQUE: Sequential axial images through the head were obtained without the administration of IV contrast. Comparisons: None FINDINGS: Bilateral subdural hematomas which are acute on chronic in the frontal regions. There is no sulcal effacement or midline shift. The subdural hematoma on the right measures 8 mm and the subdural hematoma on the left measures 7 mm. There is no midline shift or sulcal effacement. Vague area of hypodensity within the right occipital lobe which may represent vasogenic edema. The ventricular system is within normal limits without compression hydrocephalus. The basal cisterns are well maintained. The visualized portions of the paranasal sinuses and mastoid air cells are well-pneumatized. Mildly displaced fracture of the calvarium at the right occipital region IMPRESSION: 1. Evaluation is mildly degraded by motion. 2. Bilateral small subdural hematomas which are acute on chronic. No midline shift or hydrocephalus. 3. Vague area of hypodensity within the right occipital lobe which may represent vasogenic edema versus subacute infarction. Correlation with MRI is recommended. 4. Mildly displaced fracture of the calvarium in the right occipital region Exposure: One or more of the following in the visualized dose reduction techniques were utilized for this examination: 1. Automated exposure control 2. Adjustment of the MA and/or KV according to patient size Use of iterative of reconstructive technique FOR INTERNAL CODING PURPOSES Critical result: Findings discussed with Yessica Muhammad RN at 06/20/2019 5:16 PM. RESULT CODE: (C) Electronically signed by: Rosi Cruz MD (06/20/2019 5:19 PM) [id number]
[2019-06-20] MEDS ORDERED: QUET25TA5 PO (19:56)
--- NOTE | 2019-06-20 22:49 | PDOC ---
Exam Note: Imer Note: Please also refer to the separate dictated note~for this date of service dictated separately.~Patient seen individually. Discussed the patient with Nursing staff reviewed the chart.~Reviewed interim history and current functioning. Reviewed vital signs,~Labs/ Radiology~and current medications noted below. Continue current treatment with the changes noted in the dictated addendum note Assessment: Vital Signs/I&O: Vital Signs Date Time Temp Pulse Resp B/P (MAP) Pulse Ox O2 Delivery O2 Flow Rate FiO2 06/20/19 16:06 97.8 94 20 138/83 (101) 96 06/20/19 05:53 Room Air I & O 06/19/19 06/19/19 06/20/19 15:00 23:00 07:00 Intake Total 720 ml 360 ml Balance 720 ml 360 ml Labs: Laboratory Tests Test 06/20/19 06:42 06/20/19 07:15 06/20/19 11:48 06/20/19 16:25 White Blood Count 6.4 x10^3/uL (4.0-11.0) Red Blood Count 4.38 x10^6/uL (4.30-5.70) Hemoglobin 13.8 g/dL (13.0-17.5) Hematocrit 42.1 % (39.0-53.0) Mean Corpuscular Volume 96 fL (79-100) Mean Corpuscular Hemoglobin 32 pg (25-35) Mean Corpuscular Hemoglobin Concent 33 g/dL (31-37) Red Cell Distribution Width 16.2 % (11.5-14.5) H Platelet Count 125 x10^3/uL (140-400) L Neutrophils (%) (Auto) 44 % (31-73) Lymphocytes (%) (Auto) 40 % (24-48) Monocytes (%) (Auto) 12 % (0-9) H Eosinophils (%) (Auto) 3 % (0-3) Basophils (%) (Auto) 1 % (0-3) Neutrophils # (Auto) 2.8 x10^3uL (1.8-7.7) Lymphocytes # (Auto) 2.6 x10^3/uL (1.0-4.8) Monocytes # (Auto) 0.7 x10^3/uL (0.0-1.1) Eosinophils # (Auto) 0.2 x10^3/uL (0.0-0.7) Basophils # (Auto) 0.1 x10^3/uL (0.0-0.2) Sodium Level 146 mmol/L (136-145) H Potassium Level 4.1 mmol/L (3.5-5.1) Chloride Level 111 mmol/L (98-107) H Carbon Dioxide Level 30 mmol/L (21-32) Anion Gap 5 (6-14) L Blood Urea Nitrogen 36 mg/dL (8-26) H Creatinine 1.9 mg/dL (0.7-1.3) H Estimated GFR (Cockcroft-Gault) 33.5 BUN/Creatinine Ratio 19 (6-20) Glucose Level 119 mg/dL (70-99) H Calcium Level 9.0 mg/dL (8.5-10.1) Total Bilirubin 0.6 mg/dL (0.2-1.0) Aspartate Amino Transferase (AST) 35 U/L (15-37) Alanine Aminotransferase (ALT) 30 U/L (16-63) Alkaline Phosphatase 110 U/L (46-116) Total Protein 6.4 g/dL (6.4-8.2) Albumin 2.9 g/dL (3.4-5.0) L Albumin/Globulin Ratio 0.8 (1.0-1.7) L Glucose (Fingerstick) 94 mg/dL (70-99) 307 mg/dL (70-99) H 190 mg/dL (70-99) H Test 06/20/19 19:15 Glucose (Fingerstick) 120 mg/dL (70-99) H Current Medications: I have reviewed the current psychotropics carefully including drug interactions. Risk benefit ratio favors no change other than as noted in my dictated progress note. Diagnosis: Problems: (1) Anxiety disorder (2) Dementia with psychosis (3) Dementia, vascular, with delusions (4) Dementia, vascular, with depression (5) Dementia in Alzheimer's disease with delusions (6) Dementia in Alzheimer's disease with depression (7) Impulse control disorder QUINN DENNISON MD Jun 20, 2019 22:48
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
--- NOTE | 2019-06-21 23:40 | PN ---
DATE: 06/19/2019 PSYCHIATRIC PROGRESS NOTE This late entry 06/19/2019 covers elements not covered in my initial note. SUBJECTIVE: I met with the patient evening of 06/19/2019. The patient slept 7 hours previous night. He was anxious, restless, in the morning received Zyprexa, incontinent of the bowel, confused. He was blaming staff for being incontinent, pouring liquid on the floor. REVIEW OF SYSTEMS: Ambulation impaired, in wheelchair. No CV, , pulmonary, eye system symptoms on review. Reliability poor. MENTAL STATUS EXAM: Oriented to himself. Insight, judgment, recent and remote memory, attention, concentration, fund of knowledge poor, consistent with his diagnosis mentioned in my initial note. PLAN: No change from initial note. MAN Marissa DENNISON MD DR: SAMIR/radha JOB#: [id number] / [id number]
== END 2019-06-20 21:30 | disposition short-term general hospital (02) | DRG 57 ==
LOC: GEROPSY 13:46
PROVIDERS: ADMIT Psychiatry & Neurology Psychiatry; ATTEND Psychiatry & Neurology Psychiatry
DX: G30.9 Alzheimer's disease, unspecified (principal); N39.0 Urinary tract infection, site not specified; F01.51 Vascular dementia, unspecified severity, with behavioral disturbance; F02.81 Dementia in other diseases classified elsewhere, unspecified severity, with behavioral disturbance; I13.0 Hypertensive heart and chronic kidney disease with heart failure and stage 1 through stage 4 chronic kidney disease, or unspecified chronic kidney disease; F63.9 Impulse disorder, unspecified; F41.9 Anxiety disorder, unspecified; F32.9 Major depressive disorder, single episode, unspecified; E11.22 Type 2 diabetes mellitus with diabetic chronic kidney disease; E11.40 Type 2 diabetes mellitus with diabetic neuropathy, unspecified; I48.91 Unspecified atrial fibrillation; I50.9 Heart failure, unspecified; N18.3 Chronic kidney disease, stage 3 (moderate); M19.90 Unspecified osteoarthritis, unspecified site; I25.10 Atherosclerotic heart disease of native coronary artery without angina pectoris; Z66 Do not resuscitate; Z79.899 Other long term (current) drug therapy; Z85.46 Personal history of malignant neoplasm of prostate; Z85.528 Personal history of other malignant neoplasm of kidney; Z87.891 Personal history of nicotine dependence; Z90.5 Acquired absence of kidney; Z91.81 History of falling; Z95.0 Presence of cardiac pacemaker; Z88.8 Allergy status to other drugs, medicaments and biological substances; Z91.14 Patient's other noncompliance with medication regimen
CPT/HCPCS: 36415; 70450; 80053; 80061; 80162; 81001; 82306; 82947; 83036; 83540; 83550; 83735; 84436; 84443; 84480; 85025; 86592; 87086; 87641; 93005; J1815; 97110; 97116; 97530

== ENCOUNTER 2019-06-23 16:45 | Inpatient (IN) | payer BC, MEDICAID ==
[~2019-06-23] VITALS: Ht 163.8 cm; Wt 73.3 kg
[~2019-06-23 16:45] MED LIST changes: +BUPR-192 PO; +MAG355OR11 PO; +METH29OI TP; +OLAN2.5T3 PO; +QUET25TA5 PO
--- NOTE | 2019-06-23 18:10 | NUR ---
Admission Note with Justification for Admission to [facility] Patient admitted to [facility] for protective oversight for emergency stabilization of acute psychiatric crisis. Pt admitted from: Hospital Mode of arrival: POV Accompanied By: Secure Transport Precipitating behaviors that initiated intake and admission: Patient is still having combative behaviors with cares, resistive with cares, increased confusion. Description of failure of out patient attempts at stabilization in previous setting list behavior and medication trials: Behaviors and assessment findings upon admission: combative with nurses at hospital, increased confusion. Plan: Admit for protective oversight for adjustment and stabilization of medications, behaviors and mood. Intense treatment regimen including groups, medication adjustments, therapy, consistent regimen for ADL's, self care, and sleep hygiene. Daily monitoring by Inpatient staff, Psychiatry, and Medical Physician.
[2019-06-23] MEDS ORDERED: HYDR-2868 PO (18:29)
[2019-06-23] MEDS ORDERED: AMLO10TA4 PO (18:29)
[2019-06-23] MEDS ORDERED: METHYL SALICYLATE/MENTHOL TOPICAL OINTMENT 29GM TUBE. TP PRN (18:30)
[2019-06-23] MEDS ORDERED: ACETAMINOPHEN 325 MG TABLET PO PRN (18:30)
[2019-06-23] MEDS ORDERED: MAG HYDROX/AL HYDROX/SIMETH 30 ML ORAL.SUSP PO PRN (19:00)
[2019-06-23] MEDS: ATORVASTATIN CALCIUM 20 MG TABLET PO SCH (19:39)
[2019-06-23] MEDS: MEMANTINE 10 MG TABLET. PO SCH (19:39)
[2019-06-23] MEDS: GABAPENTIN 300 MG CAPSULE. PO SCH (19:39)
[2019-06-23] MEDS: hydrALAZINE 25 MG TABLET PO SCH (19:39)
[2019-06-23] MEDS ORDERED: MAGNESIUM HYDROXIDE 2,400 MG/30 ML ORAL.SUSP. PO PRN (19:45)
[2019-06-23] MEDS: INSULIN GLARGINE SYRINGE. SQ SCH (20:21)
[2019-06-23] MEDS ORDERED: QUEtiapine 25 MG TABLET. PO SCH (21:00)
[2019-06-23] MEDS ORDERED: MAGNESIUM HYDROXIDE 2,400 MG/30 ML ORAL.SUSP. PO SCH (21:00)
--- NOTE | 2019-06-23 21:37 | NUR ---
Nursing note: Assumed care of pt in his room. He was pleasantly confused but cooperative and compliant with meds in applesauce. He is alert to self only. Pt c/o pain in his back and he was lying off the pillow and against the rail of the bed. I repositioned him on his pillow and he said he felt better. He also had pain med in his HS med. No hallucinations or delusions present.
--- NOTE | 2019-06-23 21:53 | PDOC ---
Exam Note: Imer Note: Please also refer to the separate dictated note~for this date of service dictated separately. Discussed the patient with Nursing staff reviewed the chart.~Reviewed interim history and current functioning. Reviewed vital signs,~Labs/ Radiology~and current medications noted below. Continue current treatment with the changes noted in the dictated addendum note Assessment: Vital Signs/I&O: Vital Signs Date Time Temp Pulse Resp B/P (MAP) Pulse Ox O2 Delivery O2 Flow Rate FiO2 06/23/19 19:43 138/83 Labs: Laboratory Tests Test 06/23/19 19:51 Glucose (Fingerstick) 127 mg/dL (70-99) H Current Medications: Meds: Current Medications Medications (Trade) Dose Ordered Sig/Sonia Route PRN Reason Start Time Stop Time Status Last Admin Dose Admin Atorvastatin Calcium (Lipitor) 20 mg QHS PO 06/23/19 21:00 06/23/19 19:43 Gabapentin (Neurontin) 300 mg TID PO 06/23/19 21:00 06/23/19 19:43 Hydralazine HCl (Apresoline) 25 mg TID PO 06/23/19 21:00 06/23/19 19:43 Memantine (Namenda) 10 mg BID PO 06/23/19 21:00 06/23/19 19:43 Quetiapine Fumarate (SEROquel) 25 mg QHS PO 06/23/19 21:00 06/23/19 19:43 Insulin Glargine (Lantus Syringe) 13 unit QHS SQ 06/23/19 21:00 06/23/19 20:21 I have reviewed the current psychotropics carefully including drug interactions. Risk benefit ratio favors no change other than as noted in my dictated progress note. Diagnosis: Problems: (1) Anxiety disorder (2) Dementia with psychosis (3) Dementia, vascular, with delusions (4) Dementia, vascular, with depression (5) Dementia in Alzheimer's disease with delusions (6) Dementia in Alzheimer's disease with depression (7) Impulse control disorder QUINN DENNISON MD Jun 23, 2019 21:52
[2019-06-24 04:53] VITALS: BP 129/78
--- NOTE | 2019-06-24 09:14 | NUR ---
Repeat admission- Previous Admit 06/12/2019. Assessment remains valid. ACTIVITY THERAPY ASSESSMENT Completed based on observation, interview, and [employer] notes. Pt. was sitting in the hallway, alone, but agreeable to speak with BRUSHING MACHINE OPERATOR. When asked about leisure interests and hobbies, Pt. explained he picks up sticks and cleans up the yard. BRUSHING MACHINE OPERATOR asked if he likes outdoors, Pt. replied "oh yeah." She asked if he watched TV, he answered "not very much." When asked about favorite type of music, he replied "Brown and Cattle." BRUSHING MACHINE OPERATOR asked if that was a band and he trailed off and his answer did not make sense. When asked if he knew where he was, he answered the [place]." BRUSHING MACHINE OPERATOR followed up with why Pt. was here, he started off talking about the kids having a stick in the ground but again, his answer did not make sense. BRUSHING MACHINE OPERATOR asked how old Pt. was, he paused and thought "just about 49." BRUSHING MACHINE OPERATOR asked if he was , he said "oh yeah." When asked what his 's name was, he asked " which one? The first, second, third, or fourth?" His current 's name he said was "Virginia Antunez." When asked about children, he reported he did not have any. Also said 'no' when asked if he has animals. BRUSHING MACHINE OPERATOR asked about sleep and stress. Pt. reported to sleep fine and he didn't have stress. 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 BRUSHING MACHINE OPERATOR asked if Pt. could see her, with his eyes half closed and not looking at BRUSHING MACHINE OPERATOR, he said he could see her. She asked what color her shirt was, Pt. pondered for a moment and said "light blue," which was incorrect. BRUSHING MACHINE OPERATOR thanked him for his time, asked to shake his hand. It took him a moment to process that request but opened his hands and shook BRUSHING MACHINE OPERATOR's. Meditech notes report Pt. shouting out and being restless. Pt's psychosocial also notes that Pt. enjoyed traveling in a motor home. Pt. is generally withdrawn and keeps to self. Initial goal aimed to increase engagement: Pt. will participate in at least three individual Activity Therapy sessions before discharge.
[2019-06-24] MEDS: MEMANTINE 10 MG TABLET. PO SCH ×2 (09:16→19:49)
[2019-06-24] MEDS: hydrALAZINE 25 MG TABLET PO SCH ×3 (09:16→19:49)
[2019-06-24] MEDS: GABAPENTIN 300 MG CAPSULE. PO SCH ×3 (09:16→19:49)
[2019-06-24] MEDS: TAMSULOSIN 0.4 MG CAP.ER.24H. PO SCH (09:18)
[2019-06-24] MEDS: DIGOXIN 125 MCG TABLET PO SCH (09:18)
[2019-06-24] MEDS: amLODIPine BESYLATE 10 MG TABLET PO SCH (09:18)
[2019-06-24] MEDS: buPROPion XL 150 MG TAB.ER.24H PO SCH (09:18)
[2019-06-24] MEDS: INSULIN LISPRO 300 UNITS/3 ML VIAL. SQ SCH ×3 (09:20→17:34)
--- NOTE | 2019-06-24 09:21 | NUR ---
Patients blood sugar was not taken this morning. Nurse not aware of this until 0915. Held morning insulin r/t unknown blood glucose level.
[2019-06-24 09:36] LABS: BASO # 0.1 x10^3/uL (0.0-0.2); BASO % 1 % (0-3); EOS # 0.1 x10^3/uL (0.0-0.7); EOS % 1 % (0-3); HEMATOCRIT 48.3 % (39.0-53.0); HEMOGLOBIN 15.8 g/dL (13.0-17.5); LYMPH # 1.9 x10^3/uL (1.0-4.8); LYMPH % 15 % (24-48); MEAN CORPUSCULAR HEMOGLOBIN 31 pg (25-35); MEAN CORPUSCULAR HGB CONC 33 g/dL (31-37); MEAN CORPUSCULAR VOLUME 93 fL (79-100); MONO % 8 % (0-9); NEUT # 9.4 x10^3uL (1.8-7.7); NEUT % 75 % (31-73); PLATELET COUNT 164 x10^3/uL (140-400); RED BLOOD COUNT 5.18 x10^6/uL (4.30-5.70); WHITE BLOOD COUNT 12.4 x10^3/uL (4.0-11.0)
[2019-06-24 09:53] LABS: ALBUMIN 3.4 g/dL (3.4-5.0); ALBUMIN/GLOBULIN RATIO 0.8 (1.0-1.7); CALCIUM 9.4 mg/dL (8.5-10.1); CREATININE 2.2 mg/dL (0.7-1.3); GFR 28.3; MAGNESIUM 2.2 mg/dL (1.8-2.4); POTASSIUM 3.9 mmol/L (3.5-5.1); TOTAL PROTEIN 7.6 g/dL (6.4-8.2)
--- NOTE | 2019-06-24 10:33 | NUR ---
Call placed to [facility] to complete pre-auth. Archie has been approved thru 06/26/19, next review is due on 06/26/19. Case number is [id number]. James Hewitt reviewer, will schedule a time with Archie Garcia's SW on [facility], to complete review on 06/26/19. Marcelina's direct number is [phone].
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
[2019-06-24 15:46] VITALS: BP 154/82
--- NOTE | 2019-06-24 16:00 | NUR ---
Reviewed patients labs with Dr. Waller this afternoon. WBC 12.4, sodium, BUN, Creatinine, AST and Alk Phosphate are all elevated. Dr. Waller gave no orders at this time. Will continue to monitor.
--- NOTE | 2019-06-24 17:35 | NUR ---
Held patients 1700 insulin r/t blood glucose level of 78. Patient has had a small appetite today. He has been calm and quiet, he has been med compliant preferring his medications crushed in applesauce. Patients son has special permission from Valerie to visit [facility] from [id number], this is a one time exception. Coccyx is still reddened but intact.
--- NOTE | 2019-06-24 17:38 | NUR ---
Dr. Bhat has ordered an increase in patients HS Seroquel from 25mg to 37.5mg. It was reported that patient was awake on and off throughout the night last night but laid quietly in the bed.
--- NOTE | 2019-06-24 18:43 | NUR ---
PRN tylenol 650mg for pain per patient request. Will continue to monitor.
[2019-06-24] MEDS: ATORVASTATIN CALCIUM 20 MG TABLET PO SCH (19:49)
[2019-06-24] MEDS ORDERED: QUEtiapine 25 MG TABLET. PO SCH (21:00)
--- NOTE | 2019-06-24 21:00 | NUR ---
Patient in the day room on assumption of care. He is confused, disorganized. Calm, cooperative and compliant with meds and assessments. Took his meds crushed in applesauce. No agitation, no delusions or hallucinations noted. No c/o or s/s pain or discomfort.
--- NOTE | 2019-06-24 21:12 | PDOC ---
Exam Note: Imer Note: Please also refer to the separate dictated note~for this date of service dictated separately.~Patient seen individually. Discussed the patient with Nursing staff reviewed the chart.~Reviewed interim history and current functioning. Reviewed vital signs,~Labs/ Radiology~and current medications noted below. Continue current treatment with the changes noted in the dictated addendum note Assessment: Vital Signs/I&O: Vital Signs Date Time Temp Pulse Resp B/P (MAP) Pulse Ox O2 Delivery O2 Flow Rate FiO2 06/24/19 19:52 65 154/82 06/24/19 15:46 97.3 16 94 I & O 06/23/19 06/23/19 06/24/19 14:59 22:59 06:59 Intake Total 100 ml Balance 100 ml Labs: Laboratory Tests Test 06/24/19 09:02 06/24/19 12:09 06/24/19 16:39 06/24/19 19:46 White Blood Count 12.4 x10^3/uL (4.0-11.0) H Red Blood Count 5.18 x10^6/uL (4.30-5.70) Hemoglobin 15.8 g/dL (13.0-17.5) Hematocrit 48.3 % (39.0-53.0) Mean Corpuscular Volume 93 fL (79-100) Mean Corpuscular Hemoglobin 31 pg (25-35) Mean Corpuscular Hemoglobin Concent 33 g/dL (31-37) Red Cell Distribution Width 16.0 % (11.5-14.5) H Platelet Count 164 x10^3/uL (140-400) Neutrophils (%) (Auto) 75 % (31-73) H Lymphocytes (%) (Auto) 15 % (24-48) L Monocytes (%) (Auto) 8 % (0-9) Eosinophils (%) (Auto) 1 % (0-3) Basophils (%) (Auto) 1 % (0-3) Neutrophils # (Auto) 9.4 x10^3uL (1.8-7.7) H Lymphocytes # (Auto) 1.9 x10^3/uL (1.0-4.8) Monocytes # (Auto) 1.0 x10^3/uL (0.0-1.1) Eosinophils # (Auto) 0.1 x10^3/uL (0.0-0.7) Basophils # (Auto) 0.1 x10^3/uL (0.0-0.2) Sodium Level 147 mmol/L (136-145) H Potassium Level 3.9 mmol/L (3.5-5.1) Chloride Level 107 mmol/L (98-107) Carbon Dioxide Level 29 mmol/L (21-32) Anion Gap 11 (6-14) Blood Urea Nitrogen 34 mg/dL (8-26) H Creatinine 2.2 mg/dL (0.7-1.3) H Estimated GFR (Cockcroft-Gault) 28.3 BUN/Creatinine Ratio 15 (6-20) Glucose Level 114 mg/dL (70-99) H Calcium Level 9.4 mg/dL (8.5-10.1) Magnesium Level 2.2 mg/dL (1.8-2.4) Total Bilirubin 1.0 mg/dL (0.2-1.0) Aspartate Amino Transferase (AST) 41 U/L (15-37) H Alanine Aminotransferase (ALT) 32 U/L (16-63) Alkaline Phosphatase 139 U/L (46-116) H Total Protein 7.6 g/dL (6.4-8.2) Albumin 3.4 g/dL (3.4-5.0) Albumin/Globulin Ratio 0.8 (1.0-1.7) L Glucose (Fingerstick) 154 mg/dL (70-99) H 78 mg/dL (70-99) 158 mg/dL (70-99) H Current Medications: Meds: Current Medications Medications (Trade) Dose Ordered Sig/Sonia Route PRN Reason Start Time Stop Time Status Last Admin Dose Admin Amlodipine Besylate (Norvasc) 10 mg DAILY PO 06/24/19 09:00 06/24/19 09:19 Bupropion HCl (Wellbutrin Xl) 150 mg DAILY PO 06/24/19 09:00 06/24/19 09:19 Digoxin (Lanoxin) 125 mcg DAILY PO 06/24/19 09:00 06/24/19 09:19 Tamsulosin HCl (Flomax) 0.4 mg DAILY PO 06/24/19 09:00 06/24/19 09:19 Insulin Human Lispro (HumaLOG) 8 units TIDWMEALS SQ 06/24/19 08:00 06/24/19 12:30 Quetiapine Fumarate (SEROquel) 37.5 mg QHS PO 06/24/19 21:00 06/24/19 19:52 I have reviewed the current psychotropics carefully including drug interactions. Risk benefit ratio favors no change other than as noted in my dictated progress note. Diagnosis: Problems: (1) Anxiety disorder (2) Dementia with psychosis (3) Dementia, vascular, with delusions (4) Dementia, vascular, with depression (5) Dementia in Alzheimer's disease with delusions (6) Dementia in Alzheimer's disease with depression (7) Impulse control disorder QUINN DENNISON MD Jun 24, 2019 21:12
[2019-06-24] MEDS: INSULIN GLARGINE SYRINGE. SQ SCH (21:33)
--- NOTE | 2019-06-25 02:08 | CONS ---
DATE OF CONSULTATION: 06/24/2019 REASON FOR CONSULTATION: Medical management. HISTORY OF PRESENT ILLNESS: The patient is an 88-year-old male patient who was [facility] he was admitted on account of bilateral subdural hematomas. He was seen by the neurosurgical team. As there was no midline shift and there were small bilateral subdural hematomas, a decision was made not to do any intervention. Given that he continued to be agitated, combative with the nursing staff, a decision was made to transfer him back to [facility] for inpatient psychiatric stabilization. PAST MEDICAL HISTORY: Significant for chronic kidney disease stage 3, has pacemaker defibrillator, apparently has also kidney cancer for which he underwent nephrectomy, has hypertension, type 2 diabetes, profound dementia and obviously bilateral subdural hematoma. PAST SURGICAL HISTORY: Unremarkable. FAMILY HISTORY: Unobtainable. SOCIAL HISTORY: He has been a smoker in the past. ALLERGIES: He is allergic to MEPERIDINE, METFORMIN and NAPROXEN. MEDICATIONS: He is currently on following medications: Flomax 0.4 mg at bedtime daily, digoxin 125 mcg once a day, atorvastatin 20 mg at bedtime, hydralazine 25 mg 3 times a day, amlodipine besylate 10 mg once a day, analgesic balm 1 application topically 4 times a day, Tylenol 650 mg every 6 hours, gabapentin 300 mg 3 times a day, Wellbutrin 150 mg daily, olanzapine 2.5 mg every 2 hours, quetiapine fumarate 25 mg at bedtime, Namenda 10 mg twice a day, Maalox 15 mL 3 times a day, milk of magnesia 30 mL p.o. daily p.r.n. for constipation, Levemir 13 units at bedtime and Humalog 8 units 3 times a day with meals. PHYSICAL EXAMINATION: GENERAL: On examining him, he looked well and was clearly in no apparent respiratory distress, pale, but no jaundice, cyanosis, or thyromegaly. No jugular venous distension. No lower limb edema. VITAL SIGNS: His heart rate was 65, blood pressure 154/82, temperature was 97.3, respiratory rate was 16, and oxygen saturation was 94%. The rest of clinical examination is stable. LABORATORY DATA: His lab work showed a white cell count 12,400, hemoglobin 15.8, hematocrit 48, MCV 93, and platelet count of 164,000. His chemistry showed a serum sodium 147, potassium 3.9, chloride 107, bicarbonate 29, anion gap of 11, BUN 34, creatinine 2.2, estimated GFR was 28 mL per minute. His glucose was 114. Calcium was 9.4, magnesium 2.2. Total bilirubin, AST, ALT, alkaline phosphatase were normal. Total protein 7.6, albumin 3.4. ASSESSMENT AND PLAN: The patient apparently has bilateral subdural hematoma, small, did not require any surgical intervention. His blood pressure is stable. Blood sugar seemed to be stable and his kidney function stable. I will obviously follow his labs closely and make any recommendation as needed. Thank you, Dr. Bhat, for allowing me to participate in the care of this patient. ASIA WOODALL MD DR: EUGENIA/radha JOB#: [id number] / [id number]
[2019-06-25 05:40] VITALS: BP 124/61
--- NOTE | 2019-06-25 10:02 | NUR ---
WEEKLY ACTIVITY THERAPY NOTE Date of Admission: readmitted 06/23/2019, prev. admit 06/12/2019 Date of AT Assessment: 06/15/2019 Goal aimed:to increase engagement Initial goal: Pt. will participate in at least three individual Activity Therapy sessions before discharge. Weekly progress towards goal: on track, 10/16 (06/24- lock box) Group participation level: zero Weekly highlights: 1:1 lock box Behaviors observed: restless in his chair, working with Therapy Plan: no change to goal Beneficial adaptations: potentially sensory stimulation activities, yes/no questions, verbal prompting, difficulty with fine motor tasks
[2019-06-25] MEDS: INSULIN LISPRO 300 UNITS/3 ML VIAL. SQ SCH ×2 (10:19→12:27)
[2019-06-25] MEDS: amLODIPine BESYLATE 10 MG TABLET PO SCH (10:21)
[2019-06-25] MEDS: TAMSULOSIN 0.4 MG CAP.ER.24H. PO SCH (10:21)
[2019-06-25] MEDS: buPROPion XL 150 MG TAB.ER.24H PO SCH (10:21)
[2019-06-25] MEDS: DIGOXIN 125 MCG TABLET PO SCH (10:22)
[2019-06-25] MEDS: hydrALAZINE 25 MG TABLET PO SCH ×2 (10:22→12:47)
[2019-06-25] MEDS: MEMANTINE 10 MG TABLET. PO SCH (10:22)
[2019-06-25] MEDS: GABAPENTIN 300 MG CAPSULE. PO SCH ×2 (10:23→12:52)
--- NOTE | 2019-06-25 10:27 | NUR ---
Per patient , pt Son Naseem took patient's pump for the wheelchair pad home. Security brought patient's belongings from [facility], belongings inventory completed.
[2019-06-25 11:10] VITALS: BP 114/63
--- NOTE | 2019-06-25 11:27 | NUR ---
JODIE spoke to Candace, Nurse at [facility], regarding pt. insurance review scheduled for 06/26/2019. JODIE has not been informed of the time for the insurance review. Candace stated she hoped it was not too late, as they would not have transportation. JODIE informed Candace that if patient insurance does not authorize more days, transport would need to be set up, as pt. would need to be discharged.
--- NOTE | 2019-06-25 11:33 | NUR ---
Patient skipped breakfast this morning. His blood sugar was 109, no insulin was given per scale. Morning meds given at 1100 crushed in pudding. When asked, patient stated he is not in pain and is "just cold". Patient returned to sleep after taking meds. Will ensure that patient is up for lunch.
--- NOTE | 2019-06-25 12:11 | NUR ---
WEEKLY NOTE Pt. , [place], participated in treatment team. Pt. has been eating 25% to 50% of meals and sleeps an average of 7.5 hours. Pt. has been calm and compliant with medications in applesauce. Pt. is confused but pleasant and has had no adverse behaviors. Pt. next insurance review is scheduled for 06/26/2019. Pt. will discharge back to [facility].
[2019-06-25] MEDS ORDERED: DEXTROSE ORAL GEL 15 GM TUBE. ONE (12:19)
--- NOTE | 2019-06-25 12:28 | NUR ---
Patient very hard to arouse for lunch. Very drowsy and not alert. Not much response to sternal rub, he would wake up then immediately go back to sleep. Patient is diabetic and his blood sugar is 67. Taken to dining room by INVENTORY CLERK's where he refused to eat or drink. Nurse pulled glutose 15 oral glucose gel and administered to patient PO at 1226. Will re check blood glucose in 30 minutes. INVENTORY CLERK called nurse over radio and stated that patient did not swallow glucose gel and is drooling it back out.
[2019-06-25] MEDS ORDERED: DEXTROSE 50% 25 GM / 50ML DISP.SYRIN. IV ONE (12:34)
[2019-06-25 12:47] VITALS: BP 89/53
--- NOTE | 2019-06-25 12:53 | NUR ---
[place] Addendum: 06/25/19 at 1301 by BENTON NARAYAN RN disregard previous note.
--- NOTE | 2019-06-25 12:53 | NUR ---
Rapid response called at 1232 r/t patients level of consciousness and change in normal status. Patient had been given oral glucagon but it was not swallowed-he drooled it out. Patient taken from dining room and Vital signs 89/53 and pulse 96, blood sugar now 84. Stat EKG, Stat labs to include digoxin level, CBC, CMP and Lactic acid ordered by Dr. Waller. Order given to transfer downstairs. Patient has not drank or eaten anything since last night. IV Line started in Right arm by ICU nurse.
[2019-06-25 13:07] LABS: BASO # 0.1 x10^3/uL (0.0-0.2); BASO % 1 % (0-3); EOS # 0.2 x10^3/uL (0.0-0.7); EOS % 2 % (0-3); HEMATOCRIT 44.9 % (39.0-53.0); HEMOGLOBIN 14.8 g/dL (13.0-17.5); LYMPH # 3.3 x10^3/uL (1.0-4.8); LYMPH % 35 % (24-48); MEAN CORPUSCULAR HEMOGLOBIN 31 pg (25-35); MEAN CORPUSCULAR HGB CONC 33 g/dL (31-37); MEAN CORPUSCULAR VOLUME 94 fL (79-100); MONO # 0.8 x10^3/uL (0.0-1.1); MONO % 9 % (0-9); NEUT # 5.1 x10^3uL (1.8-7.7); NEUT % 54 % (31-73); PLATELET COUNT 125 x10^3/uL (140-400); RED BLOOD COUNT 4.79 x10^6/uL (4.30-5.70); RED CELL DISTRIBUTION WIDTH 16.4 % (11.5-14.5); WHITE BLOOD COUNT 9.4 x10^3/uL (4.0-11.0)
[2019-06-25 13:16] LABS: ALBUMIN 3.1 g/dL (3.4-5.0); ALBUMIN/GLOBULIN RATIO 0.8 (1.0-1.7); ALK PHOS 120 U/L (46-116); ALT (SGPT) 30 U/L (16-63); ANION GAP 10 (6-14); AST (SGOT) 48 U/L (15-37); BLOOD UREA NITROGEN 53 mg/dL (8-26); BUN/CREATININE RATIO 19 (6-20); CALCIUM 9.2 mg/dL (8.5-10.1); CARBON DIOXIDE 28 mmol/L (21-32); CHLORIDE 108 mmol/L (98-107); CREATININE 2.8 mg/dL (0.7-1.3); DIG 1.9 ng/dL (0.9-2.0); GFR 21.4; GLUCOSE 85 mg/dL (70-99); SODIUM 146 mmol/L (136-145); TOTAL BILIRUBIN 0.6 mg/dL (0.2-1.0); TOTAL PROTEIN 6.8 g/dL (6.4-8.2)
[2019-06-25] MEDS ORDERED: QUET25TA5 PO ×2 (13:16→13:24)
--- NOTE | 2019-06-25 13:27 | NUR ---
Transition Record was faxed to follow-up provider with the following elements: Reason for admission, procedures, tests, principal diagnosis, pending studies, patient instructions, 06/05 contact information for unit, phone number to obtain pending test results, plan for follow-up care, physician follow-up, advanced directive information, and medication list with dose, duration and instructions. This information was included in the following documents: History and physical, lab results, study results, progress notes, social work planning form, DC instruction form, patient visit summary, and medication reconciliation form. Date & time record faxed: 06/25/19 0077 Record faxed to: [facility] Record discussed with/ report given to: HUMERA
--- NOTE | 2019-06-25 13:27 | NUR ---
Patient to transfer to [facility]. Stat labs received, will advise med surg nurse, Evie.
--- NOTE | 2019-06-25 13:39 | EKG ---
[address] [address] Test Date: 2019-06-25 Test Time: 12:38:09 Pat Name: ZULEIKA SAINZ Department: Room: [address] [place] [address] Gender: M [employer]: : [id number] Requested By: QUINN DENNISON Order Number: [id number] Reading MD: Measurements Intervals [place] Rate: 92 P: 0 WI: 166 QRS: 160 QRSD: 136 T: -8 QT: 402 QTc: 503 Interpretive Statements SINUS RHYTHM ABNORMAL RIGHT AXIS DEVIATION LOW LIMB LEAD VOLTAGE NON SPECIFIC INTRAVENTRICULAR BLOCK RVH WITH REPOLARIZATION ABNORMALITY QRS(T) CONTOUR ABNORMALITY CONSISTENT WITH LATERAL INFARCT PROBABLY OLD CONSISTENT WITH INFERIOR INFARCT AGE UNDETERMINED ABNORMAL ECG RI6.02 No previous ECG available for comparison
--- NOTE | 2019-06-25 14:06 | NUR ---
JODIE and Analytics Intern contacted pt. , [place], to inform her that pt. would be transferred to [facility] due to medical reasons. Analytics Intern spoke to [place] regarding medical issues. [place] [facility] Dylan Maria, regarding pt. transfer.
--- NOTE | 2019-06-25 21:49 | PDOC ---
Exam Note: Imer Note: Please also refer to the separate dictated note~for this date of service dictated separately.~Patient seen individually. Discussed the patient with Nursing staff reviewed the chart.~Reviewed interim history and current functioning. Reviewed vital signs,~Labs/ Radiology~and current medications noted below. Continue current treatment with the changes noted in the dictated addendum note Assessment: Vital Signs/I&O: Vital Signs Date Time Temp Pulse Resp B/P (MAP) Pulse Ox O2 Delivery O2 Flow Rate FiO2 06/25/19 12:52 96 89/53 06/25/19 11:10 97.5 18 92 I & O 06/24/19 06/24/19 06/25/19 15:00 23:00 07:00 Intake Total 60 ml 240 ml 240 ml Balance 60 ml 240 ml 240 ml Labs: Laboratory Tests Test 06/25/19 07:48 06/25/19 11:44 06/25/19 12:34 06/25/19 12:48 Glucose (Fingerstick) 109 mg/dL (70-99) H 67 mg/dL (70-99) L 84 mg/dL (70-99) White Blood Count 9.4 x10^3/uL (4.0-11.0) Red Blood Count 4.79 x10^6/uL (4.30-5.70) Hemoglobin 14.8 g/dL (13.0-17.5) Hematocrit 44.9 % (39.0-53.0) Mean Corpuscular Volume 94 fL (79-100) Mean Corpuscular Hemoglobin 31 pg (25-35) Mean Corpuscular Hemoglobin Concent 33 g/dL (31-37) Red Cell Distribution Width 16.4 % (11.5-14.5) H Platelet Count 125 x10^3/uL (140-400) L Neutrophils (%) (Auto) 54 % (31-73) Lymphocytes (%) (Auto) 35 % (24-48) Monocytes (%) (Auto) 9 % (0-9) Eosinophils (%) (Auto) 2 % (0-3) Basophils (%) (Auto) 1 % (0-3) Neutrophils # (Auto) 5.1 x10^3uL (1.8-7.7) Lymphocytes # (Auto) 3.3 x10^3/uL (1.0-4.8) Monocytes # (Auto) 0.8 x10^3/uL (0.0-1.1) Eosinophils # (Auto) 0.2 x10^3/uL (0.0-0.7) Basophils # (Auto) 0.1 x10^3/uL (0.0-0.2) Sodium Level 146 mmol/L (136-145) H Potassium Level 4.0 mmol/L (3.5-5.1) Chloride Level 108 mmol/L (98-107) H Carbon Dioxide Level 28 mmol/L (21-32) Anion Gap 10 (6-14) Blood Urea Nitrogen 53 mg/dL (8-26) H Creatinine 2.8 mg/dL (0.7-1.3) H Estimated GFR (Cockcroft-Gault) 21.4 BUN/Creatinine Ratio 19 (6-20) Glucose Level 85 mg/dL (70-99) Lactic Acid Level 1.1 mmol/L (0.4-2.0) Calcium Level 9.2 mg/dL (8.5-10.1) Total Bilirubin 0.6 mg/dL (0.2-1.0) Aspartate Amino Transferase (AST) 48 U/L (15-37) H Alanine Aminotransferase (ALT) 30 U/L (16-63) Alkaline Phosphatase 120 U/L (46-116) H Total Protein 6.8 g/dL (6.4-8.2) Albumin 3.1 g/dL (3.4-5.0) L Albumin/Globulin Ratio 0.8 (1.0-1.7) L Digoxin Level 1.9 ng/dL (0.9-2.0) Digoxin Last Dose Date 06/25/2019 Digoxin Last Dose Time 1100 Current Medications: I have reviewed the current psychotropics carefully including drug interactions. Risk benefit ratio favors no change other than as noted in my dictated progress note. Diagnosis: Problems: (1) Anxiety disorder (2) Dementia with psychosis (3) Dementia, vascular, with delusions (4) Dementia, vascular, with depression (5) Dementia in Alzheimer's disease with delusions (6) Dementia in Alzheimer's disease with depression (7) Impulse control disorder QUINN DENNISON MD Jun 25, 2019 21:49
--- NOTE | 2019-06-26 13:43 | DS ---
DATE OF DISCHARGE: 06/25/2019 DISCHARGE SUMMARY/PSYCHIATRIC PROGRESS NOTE This late entry, date of service 06/25/2019, covers elements not covered in my initial note. REASON FOR ADMISSION: Please refer to the admission history for details. Briefly, the patient is an 88-year-old male with major neurocognitive disorder, probably vascular with delusion, depression, behavioral disturbance, who was on our unit for stabilization of his agitation and aggression at the prison in [place]. At about the latter part of his hospitalization, he was noted to have subdural hematoma, was transferred by Dr. De Jesus for neurosurgical workup to [place] and found to have had an extensive neurosurgical workup in the past in [place] with no midline shift of the brain and Dr. De Jesus did not feel anything neurosurgically was warranted. Despite this, the patient continued to be agitated, aggressive, could not go back to the prison, brought back to us for this current hospitalization for stabilization and then transferred back to prison. SIGNIFICANT FINDINGS AND CLINICAL COURSE: Following admission, the patient was seen daily individually by myself from a psychiatric standpoint, medical followup per Dr. Waller. The patient's psychotropics were being stabilized and he was on Seroquel 37.5 mg at bedtime, Namenda 10 mg b.i.d., Neurontin 300 mg t.i.d., Wellbutrin-XL 150 mg a day along with Zyprexa p.r.n. At this stage, he was hypotensive, had a significant change medically and Dr. Waller transferred him to the medical/surgical unit. Once he is stable, we will have to reassess whether he needs to be back to us, so he can return to the prison. REVIEW OF SYSTEMS: Prior to discharge, 06/25/2019, no CV, , pulmonary, eye, ENT system symptoms on review. Reliability poor. MENTAL STATUS EXAM: Oriented to himself. Insight, judgment, recent and remote memory, attention, concentration, fund of knowledge poor, consistent with his diagnoses. FINAL DIAGNOSES: Major neurocognitive disorder, Alzheimer, vascular with delusion, depression, behavioral disturbance; anxiety disorder, unspecified; impulse control disorder, unspecified. Rest as noted above. DISCHARGE MEDICATIONS: Please refer to the MRAD. DISCHARGE INSTRUCTIONS: Psychiatric medical followup on the medical/surgical floor. MAN Marissa DENNISON MD DR: Heather JOB#: [id number] / [id number]
--- NOTE | 2019-06-26 20:43 | PN ---
DATE: 06/24/2019 PSYCHIATRIC PROGRESS NOTE This late entry 06/24/2019 covers elements not covered in my initial note. SUBJECTIVE: I met with the patient evening of 06/24/2019. The patient slept 7-1/2 hours previous night. She remains confused, but no behaviors and agitation noted. WBC is elevated. We will defer to Dr. Waller. REVIEW OF SYSTEMS: Ambulation impaired, in wheelchair. No CV, , pulmonary, eye, ENT system symptoms on review. Reliability poor. MENTAL STATUS EXAM: Oriented to himself. Insight, judgment, recent and remote memory, attention, concentration, fund of knowledge poor, consistent with his diagnosis mentioned in my initial note. PLAN: Increase Seroquel from 25 mg at bedtime to 37.5 mg at bedtime. Consider transition back to [facility] end of the week. MAN Marissa DENNISON MD DR: SAMIR/radha JOB#: [id number] / [id number]
== END 2019-06-25 13:45 | DRG 57 ==
LOC: GEROPSY 18:05
PROVIDERS: ADMIT Psychiatry & Neurology Psychiatry; ATTEND Psychiatry & Neurology Psychiatry
DX: G30.9 Alzheimer's disease, unspecified (principal); I13.0 Hypertensive heart and chronic kidney disease with heart failure and stage 1 through stage 4 chronic kidney disease, or unspecified chronic kidney disease; F02.81 Dementia in other diseases classified elsewhere, unspecified severity, with behavioral disturbance; F41.9 Anxiety disorder, unspecified; F63.9 Impulse disorder, unspecified; F32.9 Major depressive disorder, single episode, unspecified; E11.22 Type 2 diabetes mellitus with diabetic chronic kidney disease; E11.40 Type 2 diabetes mellitus with diabetic neuropathy, unspecified; F01.50 Vascular dementia, unspecified severity, without behavioral disturbance, psychotic disturbance, mood disturbance, and anxiety; I50.9 Heart failure, unspecified; N18.3 Chronic kidney disease, stage 3 (moderate); I48.91 Unspecified atrial fibrillation; Z79.899 Other long term (current) drug therapy; Z85.46 Personal history of malignant neoplasm of prostate; Z85.528 Personal history of other malignant neoplasm of kidney; Z87.891 Personal history of nicotine dependence; Z66 Do not resuscitate; Z90.5 Acquired absence of kidney; Z95.1 Presence of aortocoronary bypass graft; Z95.810 Presence of automatic (implantable) cardiac defibrillator; M19.90 Unspecified osteoarthritis, unspecified site
CPT/HCPCS: 36415; 80053; 80162; 82947; 83605; 83735; 85025; 93005; J1815

== ENCOUNTER 2019-06-25 13:57 | Observation (INO) | payer BC, MEDICAID ==
[~2019-06-25] VITALS: Ht 172.7 cm; Wt 67.8 kg
[~2019-06-25 13:57] MED LIST changes: +AMLO10TA4 PO; +HYDR-2868 PO; +METH28OI2 TP; -METH29OI TP; -NITR0.4T SL; +NITR0.4T24 SL
[2019-06-25] MEDS ORDERED: METHYL SALICYLATE/MENTHOL TOPICAL OINTMENT 57GM TUBE. TP PRN ×2 (14:45→15:00)
[2019-06-25] MEDS ORDERED: MAGNESIUM HYDROXIDE 2,400 MG/30 ML ORAL.SUSP. PO PRN (14:45)
[2019-06-25] MEDS ORDERED: MAG HYDROX/AL HYDROX/SIMETH 30 ML ORAL.SUSP PO PRN (14:45)
[2019-06-25] MEDS ORDERED: ACETAMINOPHEN 325 MG TABLET PO PRN (15:00)
[2019-06-25] MEDS ORDERED: NON FORMULARY ITEM (Mag Hydrox/Aluminum Hyd/Simeth (Maalox Advanced Suspension) 15 ML) PO PRN (15:00)
[2019-06-25] MEDS ORDERED: OLANZapine 2.5 MG TABLET PO PRN (15:00)
[2019-06-25 15:06] VITALS: BP 108/65
[2019-06-25] MEDS: ACETAMINOPHEN 325 MG TABLET PO PRN (15:24)
[2019-06-25] MEDS ORDERED: DEXTROSE 50% 25 GM / 50ML DISP.SYRIN. IV PRN (16:30)
[2019-06-25] MEDS: INSULIN LISPRO 300 UNITS/3 ML VIAL. SQ SCH ×2 (16:30→22:24)
[2019-06-25] MEDS ORDERED: INSULIN LISPRO 300 UNITS/3 ML VIAL. SQ SCH (16:30)
[2019-06-25] MEDS: IV DEXTROSE 5 %-0.2 % NACL 1,000 ML IV SCH (16:45)
[2019-06-25] MEDS ORDERED: INSULIN LISPRO 8 UNIT SQ SCH (17:00)
--- NOTE | 2019-06-25 17:51 | HP ---
ADMIT DATE: 06/25/2019 HISTORY OF PRESENT ILLNESS: The patient is an 88-year-old male patient who was recently readmitted to [facility] after he was transferred to [facility] with bilateral subdural hematomas and an area of vasogenic edema in the right occipital lobe and skull fracture. He was seen by Dr. De Jesus who did not recommend any surgical intervention in the patient because he continued to be combative, agitated and therefore, he was [facility] for inpatient psychiatric stabilization. Apparently, he was sleepy this morning, so they did not wake him up; however, was very hard to arouse for lunch, very drowsy and not alert, not much response to sternal rub. He would wake up, but then immediately go back to sleep. The patient is diabetic and his blood sugar is only 67. He was taken to the dining room by can, where he refused to eat or drink. Nurse pulled Glutose 15 oral glucose gel and administered the patient p.o.; however, he did not drink the glucose gel. The patient was rapid responded. Because of the patient's level of consciousness and change in mental status, the patient has been given oral glucose, but he did not swallow it. The patient was taken from dining room and vital sign was 89/53, pulse was 96, blood sugar was 94. EKG, digoxin level, CBC, CMP, lactic acid done. The patient was transferred down to [address] [place] [address]. He did receive IV fluid and his blood pressure by the time he arrived here was around 110 systolic. He continued to be very lethargic, but arousable. He does open his eyes and then drifts back to sleep. PAST MEDICAL HISTORY: Significant for chronic kidney disease stage 3, has kidney cancer for which he underwent nephrectomy, hypertension, type 2 diabetes, profound dementia obviously bilateral subdural hematoma. PAST SURGICAL HISTORY: Significant for AICD placement. FAMILY HISTORY: Noncontributory. SOCIAL HISTORY: He is , was living at home. He has been a smoker in the past. Does not drink alcohol or use any recreational drugs. ALLERGIES: MEPERIDINE, METFORMIN, and NAPROXEN. MEDICATIONS: He is currently on following medications: He is on tamsulosin 0.4 mg daily, digoxin 125 mcg once a day, atorvastatin calcium 20 mg at bedtime, hydralazine 25 mg 3 times a day, amlodipine 10 mg once a day, analgesic balm 1 application 4 times a day. He is on Tylenol 650 mg every 6 hours, gabapentin 300 mg 3 times a day, Wellbutrin 150 mg daily, olanzapine 2.5 mg every 2 hours as needed, quetiapine fumarate 37.5 mg at bedtime, Namenda 10 mg twice a day, Maalox 15 mL after meals, milk of magnesia 30 mL p.o. daily p.r.n. for constipation, Levemir insulin 13 units at bedtime. He is on Humalog insulin 8 units subcutaneous 3 times a day with meals. PHYSICAL EXAMINATION: GENERAL: When I saw him after he arrived to the Emergency Room today on , he continued to be somewhat lethargic, but arousable. He definitely showed no pallor, jaundice, cyanosis or thyromegaly. No jugular venous distention. No limb edema. VITAL SIGNS: Her heart rate was 91, blood pressure was 108/65, temperature was 97.5, respiratory rate was 18 and oxygen saturation was 94%. HEAD, EYES, EARS, NOSE AND THROAT: Showed normocephalic, atraumatic. NECK: Supple. HEART: Showed normal first and second heart sounds with no gallop or murmur. CHEST: Clear to auscultation. No crepitation or rhonchi. ABDOMEN: Distended, soft, nontender. No guarding or rigidity. No organomegaly. All hernial orifices intact. Bowel sounds normal. NEUROLOGIC: He is lethargic, but arousable. He does open his eyes and responds verbally, although mostly he drifts back in sleep. All his cranial nerves seem to be grossly intact. He moves his upper extremities to a lesser extent than the lower extremities, mostly bedbound, chair bound. LABORATORY DATA: He has had lab work done which showed his white cell count was 9400, hemoglobin 14.8, hematocrit 44.9, MCV 94 and platelet count 225,000. His chemistry showed a serum sodium 146, potassium 4, chloride 108, bicarbonate 28, anion gap of 10, BUN 53, creatinine 2.8, estimated GFR was 21 mL per minute, his glucose was 85, calcium was 9.2. Total bilirubin, AST, ALT were normal. Alkaline phosphatase slightly elevated. Total protein was 6.8, albumin 3.1. His lactic acid is only 1.1. Toxic screen showed his digoxin level was 1.9 ng/dL, which is well within therapeutic range. SUMMARY: This is an 88-year-old male patient who was transferred down to [address] [place] [address] with altered mental status, hypotension, acute on chronic kidney injury as his BUN and creatinine have dramatically risen from 34 and 2.2 to 53 and 2.8. PLAN: My plan is to start him on IV fluids in the form of D5 half normal saline. Continue with sliding scale. We will monitor his response closely. The patient has numerous medical problems and I believe that hospice care is probably the appropriate long-term goal management for him. ASIA WOODALL MD DR: EUGENIA/radha JOB#: [id number] / [id number]
[2019-06-25 20:02] VITALS: BP 114/56
[2019-06-25] MEDS ORDERED: GABAPENTIN 300 MG CAPSULE. PO SCH (21:00)
[2019-06-25] MEDS ORDERED: ATORVASTATIN CALCIUM 20 MG TABLET PO SCH (21:00)
[2019-06-25] MEDS ORDERED: NON FORMULARY ITEM (Magnesium Hydroxide (Milk Of Magnesia) 2,400 MG) PO SCH (21:00)
[2019-06-25] MEDS ORDERED: INSULIN DETEMIR 13 UNIT SQ SCH (21:00)
[2019-06-25] MEDS ORDERED: MEMANTINE 10 MG TABLET. PO SCH (21:00)
[2019-06-25] MEDS ORDERED: QUEtiapine 25 MG TABLET. PO SCH (21:00)
[2019-06-25] MEDS ORDERED: INSULIN GLARGINE SYRINGE. SQ SCH (21:00)
[2019-06-25] MEDS: QUEtiapine 25 MG TABLET. PO SCH (21:14)
[2019-06-25] MEDS: hydrALAZINE 25 MG TABLET PO SCH (21:15)
[2019-06-25] MEDS: MEMANTINE 10 MG TABLET. PO SCH (21:15)
[2019-06-25] MEDS: GABAPENTIN 300 MG CAPSULE. PO SCH (21:16)
[2019-06-25] MEDS: ATORVASTATIN CALCIUM 20 MG TABLET PO SCH (21:16)
[2019-06-25 23:54] VITALS: BP 82/49
[2019-06-26 00:29] VITALS: BP 103/56
[2019-06-26 03:46] VITALS: BP 134/64
[2019-06-26] MEDS: INSULIN LISPRO 300 UNITS/3 ML VIAL. SQ SCH ×4 (04:30→20:52)
[2019-06-26] MEDS: IV DEXTROSE 5 %-0.2 % NACL 1,000 ML IV SCH ×2 (05:50→18:13)
[2019-06-26 05:53] VITALS: BP 120/63
[2019-06-26 06:53] LABS: HEMATOCRIT 38.3 % (39.0-53.0); HEMOGLOBIN 12.8 g/dL (13.0-17.5); RED BLOOD COUNT 4.11 x10^6/uL (4.30-5.70); RED CELL DISTRIBUTION WIDTH 16.2 % (11.5-14.5); WHITE BLOOD COUNT 8.5 x10^3/uL (4.0-11.0)
[2019-06-26 07:09] LABS: ALBUMIN 2.6 g/dL (3.4-5.0); ALBUMIN/GLOBULIN RATIO 0.8 (1.0-1.7); CALCIUM 8.5 mg/dL (8.5-10.1); CREATININE 2.6 mg/dL (0.7-1.3); GFR 23.4; TOTAL BILIRUBIN 0.7 mg/dL (0.2-1.0)
[2019-06-26] MEDS: hydrALAZINE 25 MG TABLET PO SCH ×3 (08:26→19:56)
[2019-06-26] MEDS: MEMANTINE 10 MG TABLET. PO SCH ×2 (08:41→19:55)
[2019-06-26] MEDS: GABAPENTIN 300 MG CAPSULE. PO SCH ×3 (08:41→19:55)
[2019-06-26] MEDS ORDERED: VITS A & D/LANOLIN TOPICAL OINTMENT 42GM TUBE. TP PRN (09:00)
[2019-06-26] MEDS ORDERED: buPROPion XL 150 MG TAB.ER.24H PO SCH ×2 (09:00)
[2019-06-26] MEDS ORDERED: DIGOXIN 125 MCG TABLET PO SCH ×2 (09:00)
[2019-06-26] MEDS ORDERED: amLODIPine BESYLATE 10 MG TABLET PO SCH (09:00)
[2019-06-26] MEDS ORDERED: TAMSULOSIN 0.4 MG CAP.ER.24H. PO SCH ×2 (09:00)
[2019-06-26 10:34] VITALS: BP 123/71
[2019-06-26 15:31] VITALS: BP 130/62
[2019-06-26 19:30] VITALS: BP 133/58
[2019-06-26] MEDS: QUEtiapine 25 MG TABLET. PO SCH (19:56)
[2019-06-26] MEDS: ATORVASTATIN CALCIUM 20 MG TABLET PO SCH (19:56)
[2019-06-26] MEDS: ACETAMINOPHEN 325 MG TABLET PO PRN (19:56)
[2019-06-27] MEDS: INSULIN LISPRO 300 UNITS/3 ML VIAL. SQ SCH (04:00)
--- NOTE | 2019-06-27 04:12 | PN ---
DATE: SUBJECTIVE: The patient is resting, slightly propped up in bed, no apparent distress. He is more awake today, a little bit more restless, agitated, requiring Zyprexa this morning. He was able to drink his Ensure and ate some food. He is definitely much better than yesterday. PHYSICAL EXAMINATION: GENERAL: When I examined him, he looked well and was clearly in no apparent respiratory distress. No pallor, jaundice, cyanosis or thyromegaly. No jugular venous distention. No lower limb edema. VITAL SIGNS: His heart rate was 84, blood pressure was 123/71, temperature was 97.7, respiratory rate was 20, and oxygen saturation was 96% on room air. HEAD, EYES, EARS, NOSE AND THROAT: Showed normocephalic, atraumatic. NECK: Supple. HEART: Showed normal first and second heart sounds. No gallop or murmur. CHEST: Clear to auscultation. No crepitations or rhonchi. ABDOMEN: Distended, soft, nontender. No guarding or rigidity. No organomegaly. All hernial orifices intact. Bowel sounds normal. NEUROLOGIC: He was demented; however, all his cranial nerves are intact. He moves his upper extremities without difficulty. He is mostly bedbound, chair-bound. His intake was 1300, no output was recorded. LABORATORY DATA: His lab work this morning showed a white cell count of 8500, hemoglobin 13, hematocrit 39, MCV 93, and platelet count of 103,000. His chemistry showed that his serum sodium was 141, potassium 4, chloride 107, bicarbonate 25, and anion gap of 9, BUN 48, creatinine was 2.6, estimated GFR was 23 mL per minute. His glucose 155, calcium was 8.5. Total bilirubin, AST, ALT, alkaline phosphatase were normal. Total protein was 6, albumin was 2.6. His nasal screen for MRSA PCR was negative. ASSESSMENT: 1. Altered mental status, slightly better, but the patient is more awake, alert and interactive. 2. Hypertension, much improved. 3. Acute kidney injury, much improved. His BUN is down to 48 and creatinine was 2.6. 4. Type 2 diabetes with blood sugar seems to be well controlled. PLAN: Continue IV fluid in the form of D5 with half normal saline, would continue with sliding scale. The patient would be discharged tomorrow to a alf facility in [place] to go on hospice care. ASIA WOODALL MD DR: EUGENIA/radha JOB#: [id number] / [id number]
[2019-06-27 05:38] VITALS: BP 127/60
== END 2019-06-27 08:30 ==
LOC: 1 SOUTH 13:59 → UNDOADMIN 13:59 → 1 SOUTH 14:00 → INTOOBSV 14:00
PROVIDERS: ADMIT Internal Medicine; ATTEND Internal Medicine
DX: R41.82 Altered mental status, unspecified (principal); N17.9 Acute kidney failure, unspecified; I95.9 Hypotension, unspecified; E11.22 Type 2 diabetes mellitus with diabetic chronic kidney disease; F03.90 Unspecified dementia, unspecified severity, without behavioral disturbance, psychotic disturbance, mood disturbance, and anxiety; I12.9 Hypertensive chronic kidney disease with stage 1 through stage 4 chronic kidney disease, or unspecified chronic kidney disease; N18.3 Chronic kidney disease, stage 3 (moderate); Z85.528 Personal history of other malignant neoplasm of kidney; Z87.891 Personal history of nicotine dependence; Z90.5 Acquired absence of kidney; Z95.810 Presence of automatic (implantable) cardiac defibrillator; Z79.899 Other long term (current) drug therapy; Z88.8 Allergy status to other drugs, medicaments and biological substances; R53.83 Other fatigue
CPT/HCPCS: 36415; 80053; 82947; 85027; 87641; 96360; 96361; G0378; G0379